=== PATIENT | female | born 1990 | race Caucasian/White ===

== ENCOUNTER 2018-03-24 07:30 | Emergency (ER) | payer BC ==
--- NOTE | 2018-03-24 09:12 | ER ---
Nurse's Notes [facility] Name: Adamaris Whitlock Age: 27 yrs Sex: Female : 1990 Arrival Date: 03/24/2018 Time: 07:36 Bed 18 Private MD: Diagnosis: Dehydration;Palpitations Presentation: 03/24 07:41 Presenting complaint: Patient states: "I went out drinking last night and it's done ss this before but my heart rate is high, like I can feel it and it is scaring me. I don't know if it's an allergy or what.". Transition of care: patient was not received from another setting of care. Onset of symptoms was March 24, 2018. Risk Assessment: Do you want to hurt yourself or someone else? Patient reports no desire to harm self or others. Initial Sepsis Screen: Does the patient meet any 2 criteria? HR > 90 bpm. Does the patient have a suspected source of infection? No. Patient's initial sepsis screen is negative. Care prior to arrival: None. 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 - Social history:: Smoking status: Patient uses tobacco products, smokes one pack cigarettes per day. - Ebola Screening: : Patient denies exposure to infectious person Patient denies travel to an Ebola-affected area in the 21 days before illness onset. Screenin:00 Abuse screen: Denies threats or abuse. Nutritional screening: No deficits noted. em Tuberculosis screening: No symptoms or risk factors identified. Fall Risk None identified. Assessment: 08:00 General: Appears in no apparent distress. comfortable, Behavior is calm, cooperative. em Pain: Denies pain. Neuro: Level of Consciousness is awake, alert, obeys commands, Oriented to person, place, time, situation. Cardiovascular: Capillary refill < 3 seconds Patient's skin is warm and dry. Rhythm is sinus tachycardia. Respiratory: Airway is patent Respiratory effort is even, unlabored, Respiratory pattern is regular, symmetrical. GI: GI: Abdomen is flat, Reports nausea, vomiting. : Urine is clear. Derm: Skin is intact, is healthy with good turgor, Skin is pink, warm \\T\\ dry. Vital Signs: 07:43 BP 153 / 87; Pulse 108; Resp 16; Temp 98.2; Pulse Ox 100% on R/A; Weight 117.93 kg; ss Height 5 ft. 11 in. (180.34 cm); Pain 0/10; 08:29 BP 153 / 85; Pulse 99; Resp 17; Pulse Ox 97% on R/A; mh5 07:43 Body Mass Index 36.26 (117.93 kg, 180.34 cm) ED Course: 07:36 Patient arrived in ED. mr 07:42 Triage completed. ss 07:43 Arm band placed on right wrist. ss 07:48 Magda Marin FNP-C is PHCP. snw 07:48 Italo Lr MD is Attending Physician. snw 07:55 Zafar Zamarripa LVN is Primary Nurse. em 08:28 Patient has correct armband on for positive identification. Placed in gown. Bed in low mh5 position. Call light in reach. Side rails up X 1. Adult w/ patient. Warm blanket given. cardiac monitor on. Pulse ox on. NIBP on. 08:28 Urine collected: clean catch specimen, clear. mh5 08:58 Urine --Ancillary (enter results) Sent. mh5 08:58 Urine Dipstick--Ancillary (enter results) Sent. mh5 09:12 EKG done, by ED staff, reviewed by Italo Lr MD. 5 10:12 No provider procedures requiring assistance completed. Patient did not have IV access em during this emergency room visit. Administered Medications: No medications were administered Outcome: 09:11 Discharge ordered by . snw 10:23 Discharged to home ambulatory. em 10:23 Condition: good 10:23 Discharge instructions given to patient, Instructed on discharge instructions, follow up and referral plans. Demonstrated understanding of instructions, follow-up care. 10:23 Patient left the ED. em Signatures: Magda Marin, JEWELRY RACKER-C JEWELRY RACKER-Csnw Amparo Dawn Edgar, MANUAL WRITER MANUAL WRITER em Vanessa Wright, RN RN Brenna Sanchez [facility]
--- NOTE | 2018-03-24 09:12 | EDPHYS ---
Physician Documentation [facility] Name: Adamaris Whitlock Age: 27 yrs Sex: Female : 1990 Arrival Date: 03/24/2018 Time: 07:36 Bed 18 Private MD: ED Physician Italo Lr HPI: 03/24 09:13 This 27 yrs old Female presents to ER via Ambulatory with complaints of High snw Pulse Rate. 09:13 Onset: The symptoms/episode began/occurred suddenly, post drinking last pm, awoke at snw 0400 with palpitations. Associated signs and symptoms: The patient has no apparent associated signs or symptoms. Modifying factors: The patient symptoms are alleviated by rest, the patient symptoms are aggravated by ETOH. The patient has experienced a previous episode. It is unknown whether or not the patient has recently seen a physician. 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 - Social history:: Smoking status: Patient uses tobacco products, smokes one pack cigarettes per day. - Ebola Screening: : Patient denies exposure to infectious person Patient denies travel to an Ebola-affected area in the 21 days before illness onset. ROS: 09:12 Constitutional: Negative for fever, chills, and weight loss, Eyes: Negative for injury, snw pain, redness, and discharge, ENT: Negative for injury, pain, and discharge, Neck: Negative for injury, pain, and swelling, Respiratory: Negative for shortness of breath, cough, wheezing, and pleuritic chest pain, Abdomen/GI: Negative for abdominal pain, nausea, vomiting, diarrhea, and constipation, Back: Negative for injury and pain, : Negative for injury, bleeding, discharge, and swelling, MS/Extremity: Negative for injury and deformity, Skin: Negative for injury, rash, and discoloration, Neuro: Negative for headache, weakness, numbness, tingling, and seizure, Psych: Negative for depression, anxiety, suicide ideation, homicidal ideation, and hallucinations. 09:12 Cardiovascular: Positive for palpitations. Exam: :12 Constitutional: This is a well developed, well nourished patient who is awake, alert, snw and in no acute distress. Head/Face: Normocephalic, atraumatic. Eyes: Pupils equal round and reactive to light, extra-ocular motions intact. Lids and lashes normal. Conjunctiva and sclera are non-icteric and not injected. Cornea within normal limits. Periorbital areas with no swelling, redness, or edema. ENT: Nares patent. No nasal discharge, no septal abnormalities noted. Tympanic membranes are normal and external auditory canals are clear. Oropharynx with no redness, swelling, or masses, exudates, or evidence of obstruction, uvula midline. Mucous membranes moist. Neck: Trachea midline, no thyromegaly or masses palpated, and no cervical lymphadenopathy. Supple, full range of motion without nuchal rigidity, or vertebral point tenderness. No Meningismus. Chest/axilla: Normal chest wall appearance and motion. Nontender with no deformity. No lesions are appreciated. Cardiovascular: Regular rate and rhythm with a normal S1 and S2. No gallops, murmurs, or rubs. Normal PMI, no JVD. No pulse deficits. Respiratory: Lungs have equal breath sounds bilaterally, clear to auscultation and percussion. No rales, rhonchi or wheezes noted. No increased work of breathing, no retractions or nasal flaring. Abdomen/GI: Soft, non-tender, with normal bowel sounds. No distension or tympany. No guarding or rebound. No evidence of tenderness throughout. Back: No spinal tenderness. No costovertebral tenderness. Full range of motion. Skin: Warm, dry with normal turgor. Normal color with no rashes, no lesions, and no evidence of cellulitis. MS/ Extremity: Pulses equal, no cyanosis. Neurovascular intact. Full, normal range of motion. Neuro: Awake and alert, GCS 15, oriented to person, place, time, and situation. Cranial nerves II-XII grossly intact. Motor strength 5/5 in all extremities. Sensory grossly intact. Cerebellar exam normal. Normal gait. Vital Signs: 07:43 BP 153 / 87; Pulse 108; Resp 16; Temp 98.2; Pulse Ox 100% on R/A; Weight 117.93 kg; ss Height 5 ft. 11 in. (180.34 cm); Pain 0/10; 08:29 BP 153 / 85; Pulse 99; Resp 17; Pulse Ox 97% on R/A; mh5 07:43 Body Mass Index 36.26 (117.93 kg, 180.34 cm) ss MDM: 07:48 Patient medically screened. snw 09:13 Data reviewed: vital signs, nurses notes. Data interpreted: Pulse oximetry: on room air snw is 97 %. Interpretation: normal. Counseling: I had a detailed discussion with the patient and/or guardian regarding: the historical points, exam findings, and any diagnostic results supporting the discharge/admit diagnosis, the presence of at least one elevated blood pressure reading (>120/80) during this emergency department visit, lab results, the need for outpatient follow up, to return to the emergency department if symptoms worsen or persist or if there are any questions or concerns that arise at home. Special discussion: Based on the history and exam findings, there is no indication for further emergent testing or inpatient evaluation. I discussed with the patient/guardian the need to see the medical parasitologist for further evaluation of the symptoms. I discussed with the patient/guardian the need to see the primary care provider for further evaluation of the symptoms. 03/24 08:37 Order name: Urine Dipstick--Ancillary (enter results) eb 03/24 08:37 Order name: Urine --Ancillary (enter results) eb 03/24 07:48 Order name: EKG; Complete Time: 07:48 ss 03/24 07:48 Order name: EKG - Nurse/Tech; Complete Time: 08:00 ss Administered Medications: No medications were administered Disposition: 03/24/18 09:11 Discharged to Home. Impression: Dehydration, Palpitations. - Condition is Stable. - Discharge Instructions: Dehydration, Adult, Hypertension, Palpitations, Rehydration, Adult. - Work release form, Medication Reconciliation Form, Thank You Letter, Antibiotic Education, Prescription Opioid Use form. - Follow up: Private Physician; When: 2 - 3 days; Reason: Recheck today's complaints, Continuance of care, Re-evaluation by your physician. Follow up: Emergency Department; When: As needed; Reason: Worsening of condition. Addendum: 03/28/2018 10:56 Co-signature as Attending Physician, Italo Lr MD I agree with the assessment and c melissa plan of care. Signatures: Dispatcher [employer] Italo Izaguirre MD MD cha Therrien, Shelly, ORNAMENTER HAND-C ORNAMENTER HAND-Csnw Zafar Zamarripa, DIRECTOR OF FOOD AND NUTRITION DIRECTOR OF FOOD AND NUTRITION em Vanessa Wright RN RN ss Corrections: (The following items were deleted from the chart) 03/24 10:23 09:11 03/24/2018 09:11 Discharged to Home. Impression: Dehydration; Palpitations. em Condition is Stable. Forms are Medication Reconciliation Form, Thank You Letter, Antibiotic Education, Prescription Opioid Use. Follow up: Private Physician; When: 2 - 3 days; Reason: Recheck today's complaints, Continuance of care, Re-evaluation by your physician. Follow up: Emergency Department; When: As needed; Reason: Worsening of condition. snw
[2018-03-24 12:28] LABS: Urine Blood 2+ (NEG); Urine Glucose NEGATIVE (NEG); Urine Protein TRACE (NEG); Urine Specific Gravity 1.025 (1.005-1.030); Urine pH 5.5 (5.0-7.0)
--- NOTE | 2018-03-24 14:50 | EKG ---
Test Date: 2018-03-24 Test Time: 07:52:03 Credit [employer] Manager: MAYRA MEASUREMENT RESULTS: Intervals: Rate: 103 PA: 132 QRSD: 84 QT: 336 QTc: 440 [place]: P: 22 PA: 132 QRS: 8 T: 38 INTERPRETIVE STATEMENTS: Sinus tachycardia Otherwise normal ECG No previous ECG available for comparison Electronically Signed On 03-24-18 14:49:42 [employer]ATION MECHANIC by Gerardo Edmonds
== END 2018-03-24 10:23 | disposition home or self-care (01) ==
LOC: ER 07:30
DX: E86.0 Dehydration (principal); R00.2 Palpitations; I10 Essential (primary) hypertension; F90.9 Attention-deficit hyperactivity disorder, unspecified type; F41.9 Anxiety disorder, unspecified; F17.210 Nicotine dependence, cigarettes, uncomplicated; Z79.899 Other long term (current) drug therapy
CPT/HCPCS: 81003; 81025; 93005; 99284

== ENCOUNTER 2023-06-23 21:52 | Emergency (ER) | payer BC, OTHER ==
--- OUTSIDE RECORDS SUMMARY | 2023-06-23 21:57 | XMS REPORT | Continuity of Care Document ---
Author Name Unknown Address [address] [facility] [place] [address] [facility] thconnect Address [address] [facility] [address] [place] [address] Care Team Providers Care Door Builder Name Role Phone PCP, NOT FOUND Primary Care Physician Unavailab KIRA Knight Attending Clinician Unavailable TJ CONNORS Attending Clinician Unav TJ Aguilar Attending Clinician UnaKira Rankin MD Attending Clinician [phone] Chapin Villanueva MD Attending Clinician [phone] CHAPIN VILLANUEVA Attending Clinician Unavaila CHAPIN Mckeon Attending Clinician Unavaila ulices Doctor Unassigned, [place] Attending Clinician [facility] Attending Clinician Unavaila ROEL Ivey Attending Clinician Unavailable Roel Nix MD Attending Clinician [phone] MONICA REYES Attending Clinician Unavailab Monica Ndiaye DO Attending Clinician [phone] ROMINA LYONS Attending Clinician Unavailable [facility] Attending Clinician Un available Unknown, Attending Attending Clinician Unavailab Scotty Ramirez Attending Clinician [phone] SCOTTY GARRIDO Attending Clinician Unavailable BJ SMITH Attending Clinician Unavailable Neha Strickland Attending Clinician [phone] NEHA PERALTA Attending Clinician Unavailable Andrew Lopez Attending Clinician Unavailable UNKNOWN, ATTENDING Attending Clinician Unavailab Evelin DE LA PAZ MD, Glenn C Attending Clinician [phone] Vaccine, Ang [facility] Attending Clinician Unavailab Santos CLEMENTE, Malcom Attending Clinician GLENN MELARA III Attending Clinician Unavailbaldev Scherer RN, Kathy Hdez Attending Clinician UnavailLETHA Becerra Attending Clinician Unavailable ROEL NIX Admitting Clinician Unavailable Payers Payer Name Policy Type Policy Number Effective Date Expirati on Date Source [place] [facility] STATE [id number] 2019 00:00:00 [place] [id number] 2019 00:00:00 Problems Condition Name Condition Details Condition Category Status Onset Date Resolution Date Last Treatment Date Treating Clinician Comments Source JOSHUA (obstructi ve sleep apnea) JOSHUA (obstructi ve sleep apnea) Disease Active 06-22 00:00: 00 [facility] Palpitatio ns Palpitatio ns Disease Active 06-22 00:00: 00 [facility] Chest pain, unspecifie d type Chest pain, unspecifie d type Disease Active 06-22 00:00: 00 [facility] Dizziness and giddiness Dizziness and giddiness Disease Active 06-22 00:00: 00 [facility] Obesity (BMI 30-39.9) Obesity (BMI 30-39.9) Disease Active 06-22 00:00: 00 [facility] Tobacco abuse Tobacco abuse Disease Active - 00:00: 00 [facility] Mixed anxiety and depressive disorder Mixed anxiety and depressive disorder Disease Active 9- 00:00: 00 [facility] Anxiety Anxiety Disease Active 10-07 00:00: 00 [facility] Hypertensi ve disorder Hypertensi ve disorder Disease Active - 00:00: 00 [facility] Allergies, Adverse Reactions, Alerts Allergy Name Allergy Type Status Severity Reaction(s) Onset Date Inactive Date Treating Clinician Comments Source BUSPIRON E DRUG INGREDI Active Other-Cmnt 2022-03- 00:00: 00 [facility] Buspiron e Propensi ty to adverse reaction s Active Other - See comments 2022-03 00:00: 00 [facility] Penicill ins Drug Allergy Active Shortness of Breath 2020-0 5-13 00:00: 00 Other reaction( s): Breathing issues [facility] LISINOPR IL DRUG INGREDI Active High SOB 2020-0 5-13 00:00: 00 [facility] PENICILL INS Drug Class Active High SOB 2020-0 5-13 00:00: 00 [facility] SULFA (SULFONA MIDE ANTIBIOT ICS) Drug Class Active High SOB 2020-0 5-13 00:00: 00 [facility] Lisinopr il Drug Allergy Active Shortness of Breath 2020-0 5-13 00:00: 00 Other reaction( s): Breathing issues [facility] Penicill ins Drug Allergy Active Shortness of Breath 2020-0 5-13 00:00: 00 [facility] Sulfa (Sulfona mide Antibiot ics) Drug Allergy Active Shortness of Breath 1-0 5-13 00:00: 00 [facility] Penicill ins Drug Allergy Active Shortness of Breath 1-0 5-13 00:00: 00 [facility] Sulfa (Sulfona mide Antibiot ics) Drug Allergy Active Shortness of Breath 1-0 5-13 00:00: 00 Other reaction( s): Breathing issues [facility] NO KNOWN ALLERGIE S Drug Class Active [facility] Social History Social Habit Start Date Stop Date Quantity Comments Source Gender identity [facility] Sexual orientation [facility] History of tobacco use Cigarette Smoker [facility] History SDOH Alcohol Frequency [facility] History SDOH Alcohol Std Drinks [facility] History SDOH Alcohol Binge [facility] Alcohol intake 2023-03-16 00:00:00 2023-03-16 00:00:00 Current drinker of alcohol (finding) [facility] Cigarettes smoked current (pack per day) - Reported 2022-10-18 00:00:00 2022-10-18 00:00:00 [facility] Cigarette pack-years 2022-10-18 00:00:00 2022-10-18 00:00:00 [facility] Tobacco use and exposure 2022-10-18 00:00:00 2022-10-18 00:00:00 Smokeless tobacco non-user [facility] History of Social function 2022-09-10 00:00:00 2022-09-10 00:00:00 [facility] Exposure to SARS-CoV-2 (event) 2022-03-17 00:00:00 2022-03-27 11:59:00 Not sure [facility] Alcohol Comment 2020-08-07 00:00:00 2020-08-07 00:00:00 social [facility] Sex Assigned At 1990 00:00:00 1990 00:00:00 [facility] Smoking Status Start Date Stop Date Source Unknown if ever smoked Unive [facility] Smokes tobacco daily 2022-10-18 00:00:00 [facility] Medications Ordered Medication Name Filled Medication Name Start Date Stop Date Current Medication? Ordering Clinician Indication Dosage Frequency Signature (SIG) Comments Components Source COSENTYX PEN, 2 PENS, 150 mg/mL SC injection 0 05-28 00:00: 00 Yes [facility] COSENTYX PEN, 2 PENS, 150 mg/mL SC injection 0 05-28 00:00: 00 Yes [facility] COSENTYX PEN, 2 PENS, 150 mg/mL SC injection 0 05-28 00:00: 00 Yes [facility] COSENTYX PEN, 2 PENS, 150 mg/mL SC injection 2023-0 05-28 00:00: 00 Yes [facility] COSENTYX PEN, 2 PENS, 150 mg/mL SC injection 0 05-28 00:00: 00 Yes [facility] SERTraline 25 mg tablet 2023-0 1-30 00:00: 00 Yes PLEASE SEE ATTACHED FOR DETAILED DIRECTIONS [facility] SERTraline 25 mg tablet 2023-0 1-30 00:00: 00 Yes PLEASE SEE ATTACHED FOR DETAILED DIRECTIONS [facility] SERTraline 25 mg tablet 04-26 00:00: 00 Yes PLEASE SEE ATTACHED FOR DETAILED DIRECTIONS [facility] SERTraline 25 mg tablet 04-26 00:00: 00 Yes PLEASE SEE ATTACHED FOR DETAILED DIRECTIONS [facility] SERTraline 25 mg tablet 04-26 00:00: 00 Yes PLEASE SEE ATTACHED FOR DETAILED DIRECTIONS [facility] sulfur hexafluorid e microsphr (LUMASON) injection 5 mL 04-15 17:15: 00 04-15 17:13 :00 No [id number] 5mL 5 mL, Intravenou s, ONCE, 1 dose, On Tue04/15/23 at 1115, Routine
produce team member approving Restricted medication : KIRA HOLLIS [facility] propranoloL 20 mg tablet 2022-03 00:00: 00 Yes [id number] 20mg Take 1 tablet by mouth in the morning and 1 tablet in the evening. [facility] propranoloL 20 mg tablet 2022-03 00:00: 00 Yes [id number] 20mg Take 1 tablet by mouth in the morning and 1 tablet in the evening. [facility] propranoloL 20 mg tablet 2022-03 00:00: 00 Yes [id number] 20mg Take 1 tablet by mouth in the morning and 1 tablet in the evening. [facility] propranoloL 20 mg tablet 2022-03 00:00: 00 Yes [id number] 20mg Take 1 tablet by mouth in the morning and 1 tablet in the evening. [facility] propranoloL 20 mg tablet 2022-03 00:00: 00 Yes [id number] 20mg Take 1 tablet by mouth in the morning and 1 tablet in the evening. [facility] propranoloL 20 mg tablet 2022-03 00:00: 00 Yes [id number] 20mg Take 1 tablet by mouth in the morning and 1 tablet in the evening. [facility] propranoloL 20 mg tablet 2022-03 00:00: 00 Yes [id number] 20mg Take 1 tablet by mouth in the morning and 1 tablet in the evening. [facility] propranoloL 20 mg tablet 2022-03 00:00: 00 Yes [id number] 20mg Take 1 tablet by mouth in the morning and 1 tablet in the evening. [facility] propranoloL 20 mg tablet 2022-03 00:00: 00 Yes [id number] 20mg Take 1 tablet by mouth in the morning and 1 tablet in the evening. [facility] propranoloL 20 mg tablet 2022-03 00:00: 00 Yes [id number] 20mg Take 1 tablet by mouth in the morning and 1 tablet in the evening. [facility] propranoloL 20 mg tablet 2022-03 00:00: 00 Yes [id number] 20mg Take 1 tablet by mouth in the morning and 1 tablet in the evening. [facility] propranoloL 20 mg tablet 2022-03 00:00: 00 Yes [id number] 20mg Take 1 tablet by mouth in the morning and 1 tablet in the evening. [facility] propranoloL 20 mg tablet 2022-03 00:00: 00 Yes [id number] 20mg Take 1 tablet by mouth in the morning and 1 tablet in the evening. [facility] propranoloL 20 mg tablet 2022-03 00:00: 00 Yes [id number] 20mg Take 1 tablet by mouth in the morning and 1 tablet in the evening. [facility] propranoloL 20 mg tablet 2022-03 00:00: 00 Yes [id number] 20mg Take 1 tablet by mouth in the morning and 1 tablet in the evening. [facility] propranoloL 20 mg tablet 2022-03 00:00: 00 Yes [id number] 20mg Take 1 tablet by mouth in the morning and 1 tablet in the evening. [facility] propranoloL 20 mg tablet 2022-03 00:00: 00 Yes [id number] 20mg Take 1 tablet by mouth in the morning and 1 tablet in the evening. [facility] LORazepam (ATIVAN) tablet 0.5 mg 2022-03 21:15: 00 03-02 21:14 :00 No .5mg 0.5 mg, Oral, ONCE, 1 dose, On Tue03/02/23 at 1515, Routine [facility] promethazin e-dextromet horphan 6.25-15 mg/5 mL syrup 2022-03 2- 00:00: 00 03-09 05:59 :00 No [id number] 5mL Take 5 mL by mouth 4 (four) times daily for 10 days. [facility] promethazin e-dextromet horphan 6.25-15 mg/5 mL syrup 2022-03 2- 00:00: 00 03-09 05:59 :00 No [id number] 5mL Take 5 mL by mouth 4 (four) times daily for 10 days. [facility] promethazin e-dextromet horphan 6.25-15 mg/5 mL syrup 2022-03 2- 00:00: 00 03-09 05:59 :00 No [id number] 5mL Take 5 mL by mouth 4 (four) times daily for 10 days. [facility] promethazin e-dextromet horphan 6.25-15 mg/5 mL syrup 2022-03 2- 00:00: 00 03-09 05:59 :00 No [id number] 5mL Take 5 mL by mouth 4 (four) times daily for 10 days. [facility] predniSONE 20 mg tablet 2022-03 2- 00:00: 00 03-04 05:59 :00 No [id number] 40mg Take 2 tablets by mouth in the morning for 5 days. [facility] predniSONE 20 mg tablet 2022-03 2- 00:00: 00 03-04 05:59 :00 No [id number] 40mg Take 2 tablets by mouth in the morning for 5 days. [facility] predniSONE 20 mg tablet 2022-03 2- 00:00: 00 03-04 05:59 :00 No [id number] 40mg Take 2 tablets by mouth in the morning for 5 days. [facility] predniSONE 20 mg tablet 2022-03 2- 00:00: 00 03-04 05:59 :00 No [id number] 40mg Take 2 tablets by mouth in the morning for 5 days. [facility] nirmatrelvi r-ritonavir (PAXLOVID, EUA,) 300 mg (150 mg x 2)-100 mg tablet 10-18 00:00: 00 10-24 04:59 :00 No [id number] 3{tbl} Take 3 tablets by mouth in the morning and 3 tablets in the evening. Do all this for 5 days. [facility] propranoloL 10 mg tablet 0 08-02 07:06: 25 08-02 00:00 :00 No propranolo l 10 mg tablet TAKE ONE TABLET BY MOUTH THREE TIMES A DAY NEEDED [facility] irbesartan 150 mg tablet 0 08-02 00:00: 00 Yes [id number] 150mg Take 1 tablet by mouth in the morning. [facility] irbesartan 150 mg tablet 2022-0 08-02 00:00: 00 Yes [id number] 150mg Take 1 tablet by mouth in the morning. [facility] irbesartan 150 mg tablet 2022-0 08-02 00:00: 00 Yes [id number] 150mg Take 1 tablet by mouth in the morning. [facility] irbesartan 150 mg tablet 2022-0 08-02 00:00: 00 Yes [id number] 150mg Take 1 tablet by mouth in the morning. [facility] irbesartan 150 mg tablet 2022-0 08-02 00:00: 00 Yes [id number] 150mg Take 1 tablet by mouth in the morning. [facility] irbesartan 150 mg tablet 2022-0 08-02 00:00: 00 Yes [id number] 150mg Take 1 tablet by mouth in the morning. [facility] irbesartan 150 mg tablet 2022-0 08-02 00:00: 00 Yes [id number] 150mg Take 1 tablet by mouth in the morning. [facility] irbesartan 150 mg tablet 2022-0 08-02 00:00: 00 Yes [id number] 150mg Take 1 tablet by mouth in the morning. [facility] irbesartan 150 mg tablet 2022-0 5-08 00:00: 00 Yes [id number] 150mg Take 1 tablet by mouth in the morning. [facility] irbesartan 150 mg tablet 2023-0 5-08 00:00: 00 Yes [id number] 150mg Take 1 tablet by mouth in the morning. [facility] irbesartan 150 mg tablet 2023-0 5-08 00:00: 00 Yes [id number] 150mg Take 1 tablet by mouth in the morning. [facility] irbesartan 150 mg tablet 2023-0 5-08 00:00: 00 Yes [id number] 150mg Take 1 tablet by mouth in the morning. [facility] irbesartan 150 mg tablet 2023-0 5-08 00:00: 00 Yes [id number] 150mg Take 1 tablet by mouth in the morning. [facility] irbesartan 150 mg tablet 2023-0 5-08 00:00: 00 Yes [id number] 150mg Take 1 tablet by mouth in the morning. [facility] irbesartan 150 mg tablet 2023-0 5-08 00:00: 00 Yes [id number] 150mg Take 1 tablet by mouth in the morning. [facility] irbesartan 150 mg tablet 2023-0 5-08 00:00: 00 Yes [id number] 150mg Take 1 tablet by mouth in the morning. [facility] irbesartan 150 mg tablet 2023-0 5-08 00:00: 00 Yes [id number] 150mg Take 1 tablet by mouth in the morning. [facility] irbesartan 150 mg tablet 2023-0 5-08 00:00: 00 Yes [id number] 150mg Take 1 tablet by mouth in the morning. [facility] irbesartan 150 mg tablet 2023-0 5-08 00:00: 00 Yes [id number] 150mg Take 1 tablet by mouth in the morning. [facility] irbesartan 150 mg tablet 2023-0 5-08 00:00: 00 Yes [id number] 150mg Take 1 tablet by mouth in the morning. [facility] irbesartan 150 mg tablet 2023-0 5-08 00:00: 00 Yes [id number] 150mg Take 1 tablet by mouth in the morning. [facility] irbesartan 150 mg tablet 2023-0 5-08 00:00: 00 Yes [id number] 150mg Take 1 tablet by mouth in the morning. [facility] irbesartan 150 mg tablet 2023-0 5-08 00:00: 00 Yes [id number] 150mg Take 1 tablet by mouth in the morning. [facility] irbesartan 150 mg tablet 2023-0 5-08 00:00: 00 Yes [id number] 150mg Take 1 tablet by mouth in the morning. [facility] irbesartan 150 mg tablet 2023-0 5-08 00:00: 00 Yes [id number] 150mg Take 1 tablet by mouth in the morning. [facility] irbesartan 150 mg tablet 2023-0 5-08 00:00: 00 Yes [id number] 150mg Take 1 tablet by mouth in the morning. [facility] irbesartan 150 mg tablet 2023-0 -08 00:00: 00 Yes [id number] 150mg Take 1 tablet by mouth in the morning. [facility] irbesartan 150 mg tablet 3-0 08 00:00: 00 Yes [id number] 150mg Take 1 tablet by mouth in the morning. [facility] irbesartan 150 mg tablet 3-0 -08 00:00: 00 Yes [id number] 150mg Take 1 tablet by mouth in the morning. [facility] irbesartan 150 mg tablet 3-0 08 00:00: 00 Yes [id number] 150mg Take 1 tablet by mouth in the morning. [facility] propranoloL 10 mg tablet 3-0 08 00:00: 00 11-01 04:59 :00 No [id number] 10mg Take 1 tablet by mouth in the morning for 90 days. [facility] propranoloL 10 mg tablet 2023-0 -08 00:00: 00 11-01 04:59 :00 No [id number] 10mg Take 1 tablet by mouth in the morning for 90 days. [facility] propranoloL 10 mg tablet 2023-0 5-08 00:00: 00 11-01 04:59 :00 No [id number] 10mg Take 1 tablet by mouth in the morning for 90 days. [facility] propranoloL 10 mg tablet 3-0 5-08 00:00: 00 07 04:59 :00 No [id number] 10mg Take 1 tablet by mouth in the morning for 90 days. [facility] adalimumab (HUMIRA,CF, PEN) 80 mg/0.8 mL PnKt 2023-0 3-20 00:00: 00 Yes [facility] it[facility] adalimumab (HUMIRA,CF, PEN) 80 mg/0.8 mL PnKt 2023-0 3-20 00:00: 00 Yes [facility] adalimumab (HUMIRA,CF, PEN) 80 mg/0.8 mL PnKt 2023-0 3-20 00:00: 00 Yes [facility] adalimumab (HUMIRA,CF, PEN) 80 mg/0.8 mL PnKt 2023-0 3-20 00:00: 00 Yes [facility] adalimumab (HUMIRA,CF, PEN) 80 mg/0.8 mL PnKt 2023-0 3-20 00:00: 00 Yes [facility] benzonatate 100 mg capsule 2021-03 2- 00:00: 00 Yes [id number] 100mg Take 1 capsule by mouth every 8 (eight) hours as needed for Cough. [facility] benzonatate 100 mg capsule 2021- 2- 00:00: 00 Yes [id number] 100mg Take 1 capsule by mouth every 8 (eight) hours as needed for Cough. [facility] benzonatate 100 mg capsule 2021- 2- 00:00: 00 Yes [id number] 100mg Take 1 capsule by mouth every 8 (eight) hours as needed for Cough. [facility] benzonatate 100 mg capsule 2021- 2- 00:00: 00 Yes [id number] 100mg Take 1 capsule by mouth every 8 (eight) hours as needed for Cough. [facility] benzonatate 100 mg capsule 2021- 2- 00:00: 00 Yes [id number] 100mg Take 1 capsule by mouth every 8 (eight) hours as needed for Cough. [facility] benzonatate 100 mg capsule 2021-03 00:00: 00 Yes [id number] 100mg Take 1 capsule by mouth every 8 (eight) hours as needed for Cough. [facility] benzonatate 100 mg capsule 2021-03 00:00: 00 Yes [id number] 100mg Take 1 capsule by mouth every 8 (eight) hours as needed for Cough. [facility] mg capsule 2021-03 00:00: 00 Yes [id number] 100mg Take 1 capsule by mouth every 8 (eight) hours as needed for Cough. [facility] mg capsule 2021-03 00:00: 00 Yes [id number] 100mg Take 1 capsule by mouth every 8 (eight) hours as needed for Cough. [facility] benzonatate 100 mg capsule 2021-03 00:00: 00 Yes [id number] 100mg Take 1 capsule by mouth every 8 (eight) hours as needed for Cough. [facility] mg capsule 2021-03 00:00: 00 Yes [id number] 100mg Take 1 capsule by mouth every 8 (eight) hours as needed for Cough. [facility] benzonatate 100 mg capsule 2021-03 00:00: 00 Yes [id number] 100mg Take 1 capsule by mouth every 8 (eight) hours as needed for Cough. [facility] benzonatate 100 mg capsule 2021-05-18 00:00: 00 Yes [id number] 100mg Take 1 capsule by mouth every 8 (eight) hours as needed for Cough. [facility] benzonatate 100 mg capsule 2021-05-18 00:00: 00 Yes [id number] 100mg Take 1 capsule by mouth every 8 (eight) hours as needed for Cough. [facility] mg capsule 2021-05-18 00:00: 00 Yes [id number] 100mg Take 1 capsule by mouth every 8 (eight) hours as needed for Cough. [facility] mg capsule 2021-05-18 00:00: 00 Yes [id number] 100mg Take 1 capsule by mouth every 8 (eight) hours as needed for Cough. [facility] mg capsule 2021-05-18 00:00: 00 Yes [id number] 100mg Take 1 capsule by mouth every 8 (eight) hours as needed for Cough. [facility] benzonatate 100 mg capsule 2021-05-18 00:00: 00 Yes [id number] 100mg Take 1 capsule by mouth every 8 (eight) hours as needed for Cough. [facility] ben[facility] 100 mg capsule 2021-05-18 00:00: 00 Yes [id number] 100mg Take 1 capsule by mouth every 8 (eight) hours as needed for Cough. [facility] 100 mg capsule 2021-05-18 00:00: 00 Yes [id number] 100mg Take 1 capsule by mouth every 8 (eight) hours as needed for Cough. [facility]ate 100 mg capsule 2021-05-18 00:00: 00 Yes [id number] 100mg Take 1 capsule by mouth every 8 (eight) hours as needed for Cough. [facility] benzonatate 100 mg capsule 2021-05-18 00:00: 00 Yes [id number] 100mg Take 1 capsule by mouth every 8 (eight) hours as needed for Cough. [facility] benzonatate 100 mg capsule 2021-03 00:00: 00 Yes [id number] 100mg Take 1 capsule by mouth every 8 (eight) hours as needed for Cough. [facility] benzon[facility]ate 100 mg capsule 2021-05-18 00:00: 00 Yes [id number] 100mg Take 1 capsule by mouth every 8 (eight) hours as needed for Cough. [facility] benzonatate 100 mg capsule 2021-1 05-18 00:00: 00 Yes [id number] 100mg Take 1 capsule by mouth every 8 (eight) hours as needed for Cough. [facility] 100 mg capsule 2021-1 05-18 00:00: 00 Yes [id number] 100mg Take 1 capsule by mouth every 8 (eight) hours as needed for Cough. [facility] 2021-1 05-18 00:00: 00 Yes [id number] 100mg Take 1 capsule by mouth every 8 (eight) hours as needed for Cough. [facility] benzonatate 100 mg capsule 2021-03 00:00: 00 Yes [id number] 100mg Take 1 capsule by mouth every 8 (eight) hours as needed for Cough. [facility] benzonatate 100 mg capsule 2021-03 00:00: 00 Yes [id number] 100mg Take 1 capsule by mouth every 8 (eight) hours as needed for Cough. [facility] benzonatate 100 mg capsule 2021-03 00:00: 00 Yes [id number] 100mg Take 1 capsule by mouth every 8 (eight) hours as needed for Cough. [facility] benzonatate 100 mg capsule 2021-03 00:00: 00 Yes [id number] 100mg Take 1 capsule by mouth every 8 (eight) hours as needed for Cough. [facility] benzonatate 100 mg capsule 2021-03 00:00: 00 Yes [id number] 100mg Take 1 capsule by mouth every 8 (eight) hours as needed for Cough. [facility] Methylpredn isolone 4 mg tablet 2021-03 00:00: 00 03-23 05:59 :00 No [id number] 4mg Take 1 tablet by mouth every 12 (twelve) hours for 5 days. [facility] azithromyci n 250 mg tablet 2021-0 08-13 00:00: 00 Yes TAKE 2 TABLETS BY MOUTH TODAY, THEN TAKE 1 TABLET DAILY FOR 4 DAYS [facility] azithromyci n 250 mg tablet 2021-0 08-13 00:00: 00 Yes TAKE 2 TABLETS BY MOUTH TODAY, THEN TAKE 1 TABLET DAILY FOR 4 DAYS [facility] azithromyci n 250 mg tablet 2021-0 - 00:00: 00 Yes TAKE 2 TABLETS BY MOUTH TODAY, THEN TAKE 1 TABLET DAILY FOR 4 DAYS [facility] azithromyci n 250 mg tablet 2021-0 - 00:00: 00 Yes TAKE 2 TABLETS BY MOUTH TODAY, THEN TAKE 1 TABLET DAILY FOR 4 DAYS [facility] azithromyci n 250 mg tablet 0 08-13 00:00: 00 Yes TAKE 2 TABLETS BY MOUTH TODAY, THEN TAKE 1 TABLET DAILY FOR 4 DAYS [facility] azithromyci n 250 mg tablet 2021-0 08-13 00:00: 00 Yes TAKE 2 TABLETS BY MOUTH TODAY, THEN TAKE 1 TABLET DAILY FOR 4 DAYS [facility] azithromyci n 250 mg tablet 2021-0 08-13 00:00: 00 Yes TAKE 2 TABLETS BY MOUTH TODAY, THEN TAKE 1 TABLET DAILY FOR 4 DAYS [facility] azithromyci n 250 mg tablet 2021-0 08-13 00:00: 00 09-10 00:00 :00 No TAKE 2 TABLETS BY MOUTH TODAY, THEN TAKE 1 TABLET DAILY FOR 4 DAYS [facility] clindamycin 1 % gel 2021-0 08-05 00:00: 00 Yes APPLY THIN LAYER TO AFFECTED AREA IN GROIN/UNDE RARMS/LU STS EVERY DAY [facility] doxycycline hyclate 100 mg capsule 2021-0 08-05 00:00: 00 Yes TAKE 1 CAPSULE BY MOUTH TWICE A DAY WITH FOOD AND WATER. DO NOT LIE DOWN ONE HOUR AFTER TAKING [facility] clindamycin 1 % gel 2021-0 08-05 00:00: 00 Yes APPLY THIN LAYER TO AFFECTED AREA IN GROIN/UNDE RARMS/LU STS EVERY DAY [facility] doxycycline hyclate 100 mg capsule 2021-0 08-05 00:00: 00 Yes TAKE 1 CAPSULE BY MOUTH TWICE A DAY WITH FOOD AND WATER. DO NOT LIE DOWN ONE HOUR AFTER TAKING [facility] clindamycin 1 % gel 2021-0 11 00:00: 00 Yes APPLY THIN LAYER TO AFFECTED AREA IN GROIN/UNDE RARMS/LU STS EVERY DAY [facility] doxycycline hyclate 100 mg capsule 2021-0 11 00:00: 00 Yes TAKE 1 CAPSULE BY MOUTH TWICE A DAY WITH FOOD AND WATER. DO NOT LIE DOWN ONE HOUR AFTER TAKING [facility] clindamycin 1 % gel 2-0 -11 00:00: 00 Yes APPLY THIN LAYER TO AFFECTED AREA IN GROIN/UNDE RARMS/LU STS EVERY DAY [facility] doxycycline hyclate 100 mg capsule 2-0 11 00:00: 00 Yes TAKE 1 CAPSULE BY MOUTH TWICE A DAY WITH FOOD AND WATER. DO NOT LIE DOWN ONE HOUR AFTER TAKING [facility] clindamycin 1 % gel 2022-0 11 00:00: 00 Yes APPLY THIN LAYER TO AFFECTED AREA IN GROIN/UNDE RARMS/LU STS EVERY DAY [facility] doxycycline hyclate 100 mg capsule 2-0 11 00:00: 00 Yes TAKE 1 CAPSULE BY MOUTH TWICE A DAY WITH FOOD AND WATER. DO NOT LIE DOWN ONE HOUR AFTER TAKING [facility] clindamycin 1 % gel 2-0 11 00:00: 00 Yes APPLY THIN LAYER TO AFFECTED AREA IN GROIN/UNDE RARMS/LU STS EVERY DAY [facility] doxycycline hyclate 100 mg capsule 2-0 08-05 00:00: 00 Yes TAKE 1 CAPSULE BY MOUTH TWICE A DAY WITH FOOD AND WATER. DO NOT LIE DOWN ONE HOUR AFTER TAKING [facility] clindamycin 1 % gel 2-0 11 00:00: 00 Yes APPLY THIN LAYER TO AFFECTED AREA IN GROIN/UNDE RARMS/LU STS EVERY DAY [facility] doxycycline hyclate 100 mg capsule 2-0 11 00:00: 00 Yes TAKE 1 CAPSULE BY MOUTH TWICE A DAY WITH FOOD AND WATER. DO NOT LIE DOWN ONE HOUR AFTER TAKING [facility] clindamycin 1 % gel 2-0 11 00:00: 00 Yes APPLY THIN LAYER TO AFFECTED AREA IN GROIN/UNDE RARMS/LU STS EVERY DAY [facility] doxycycline hyclate 100 mg capsule 2-0 11 00:00: 00 Yes TAKE 1 CAPSULE BY MOUTH TWICE A DAY WITH FOOD AND WATER. DO NOT LIE DOWN ONE HOUR AFTER TAKING [facility] clindamycin 1 % gel 2022-0 -11 00:00: 00 Yes APPLY THIN LAYER TO AFFECTED AREA IN GROIN/UNDE RARMS/LU STS EVERY DAY [facility] doxycycline hyclate 100 mg capsule 2-0 5-11 00:00: 00 Yes TAKE 1 CAPSULE BY MOUTH TWICE A DAY WITH FOOD AND WATER. DO NOT LIE DOWN ONE HOUR AFTER TAKING [facility] 1 % gel 2-0 11 00:00: 00 Yes APPLY THIN LAYER TO AFFECTED AREA IN GROIN/UNDE RARMS/LU STS EVERY DAY [facility] do[facility]ine hyclate 100 mg capsule 2-0 08-05 00:00: 00 Yes TAKE 1 CAPSULE BY MOUTH TWICE A DAY WITH FOOD AND WATER. DO NOT LIE DOWN ONE HOUR AFTER TAKING [facility] cl[facility] 1 % gel 2-0 11 00:00: 00 Yes APPLY THIN LAYER TO AFFECTED AREA IN GROIN/UNDE RARMS/LU STS EVERY DAY [facility] doxycycline hyclate 100 mg capsule 2021-0 08-05 00:00: 00 Yes TAKE 1 CAPSULE BY MOUTH TWICE A DAY WITH FOOD AND WATER. DO NOT LIE DOWN ONE HOUR AFTER TAKING [facility] clindamycin 1 % gel 2-0 08-05 00:00: 00 Yes APPLY THIN LAYER TO AFFECTED AREA IN GROIN/UNDE RARMS/LU STS EVERY DAY [facility] doxycycline hyclate 100 mg capsule 2021-0 08-05 00:00: 00 Yes TAKE 1 CAPSULE BY MOUTH TWICE A DAY WITH FOOD AND WATER. DO NOT LIE DOWN ONE HOUR AFTER TAKING [facility] clindamycin 1 % gel 2-0 11 00:00: 00 Yes APPLY THIN LAYER TO AFFECTED AREA IN GROIN/UNDE RARMS/LU STS EVERY DAY [facility] doxycycline hyclate 100 mg capsule 2-0 11 00:00: 00 Yes TAKE 1 CAPSULE BY MOUTH TWICE A DAY WITH FOOD AND WATER. DO NOT LIE DOWN ONE HOUR AFTER TAKING [facility] clindamycin 1 % gel 2-0 11 00:00: 00 Yes APPLY THIN LAYER TO AFFECTED AREA IN GROIN/UNDE RARMS/LU STS EVERY DAY [facility] doxycycline hyclate 100 mg capsule 2-0 11 00:00: 00 Yes TAKE 1 CAPSULE BY MOUTH TWICE A DAY WITH FOOD AND WATER. DO NOT LIE DOWN ONE HOUR AFTER TAKING [facility] clindamycin 1 % gel 2-0 11 00:00: 00 Yes APPLY THIN LAYER TO AFFECTED AREA IN GROIN/UNDE RARMS/LU STS EVERY DAY [facility] hy[facility]ate 100 mg capsule 2021-0 11 00:00: 00 Yes TAKE 1 CAPSULE BY MOUTH TWICE A DAY WITH FOOD AND WATER. DO NOT LIE DOWN ONE HOUR AFTER TAKING [facility] clindamycin 1 % gel 2-0 11 00:00: 00 Yes APPLY THIN LAYER TO AFFECTED AREA IN GROIN/UNDE RARMS/LU STS EVERY DAY [facility] do[facility] hy[facility]ate 100 mg capsule 2-0 08-05 00:00: 00 Yes TAKE 1 CAPSULE BY MOUTH TWICE A DAY WITH FOOD AND WATER. DO NOT LIE DOWN ONE HOUR AFTER TAKING [facility] clindamycin 1 % gel 2-0 11 00:00: 00 Yes APPLY THIN LAYER TO AFFECTED AREA IN GROIN/UNDE RARMS/LU STS EVERY DAY [facility] doxycycline hyclate 100 mg capsule 2021-0 08-05 00:00: 00 Yes TAKE 1 CAPSULE BY MOUTH TWICE A DAY WITH FOOD AND WATER. DO NOT LIE DOWN ONE HOUR AFTER TAKING [facility] clindamycin 1 % gel 2-0 11 00:00: 00 Yes APPLY THIN LAYER TO AFFECTED AREA IN GROIN/UNDE RARMS/LU STS EVERY DAY [facility] doxycycline hyclate 100 mg capsule 2-0 11 00:00: 00 Yes TAKE 1 CAPSULE BY MOUTH TWICE A DAY WITH FOOD AND WATER. DO NOT LIE DOWN ONE HOUR AFTER TAKING [facility] clindamycin 1 % gel 2-0 11 00:00: 00 Yes APPLY THIN LAYER TO AFFECTED AREA IN GROIN/UNDE RARMS/LU STS EVERY DAY [facility] do[facility]ine hy[facility]ate 100 mg capsule 2-0 11 00:00: 00 Yes TAKE 1 CAPSULE BY MOUTH TWICE A DAY WITH FOOD AND WATER. DO NOT LIE DOWN ONE HOUR AFTER TAKING [facility] clindamycin 1 % gel 2-0 11 00:00: 00 Yes APPLY THIN LAYER TO AFFECTED AREA IN GROIN/UNDE RARMS/LU STS EVERY DAY [facility] doxycycline hyclate 100 mg capsule 2-0 11 00:00: 00 Yes TAKE 1 CAPSULE BY MOUTH TWICE A DAY WITH FOOD AND WATER. DO NOT LIE DOWN ONE HOUR AFTER TAKING [facility] clindamycin 1 % gel 2-0 11 00:00: 00 Yes APPLY THIN LAYER TO AFFECTED AREA IN GROIN/UNDE RARMS/LU STS EVERY DAY [facility] doxycycline hyclate 100 mg capsule 2-0 11 00:00: 00 Yes TAKE 1 CAPSULE BY MOUTH TWICE A DAY WITH FOOD AND WATER. DO NOT LIE DOWN ONE HOUR AFTER TAKING [facility] clindamycin 1 % gel 2-0 11 00:00: 00 Yes APPLY THIN LAYER TO AFFECTED AREA IN GROIN/UNDE RARMS/LU STS EVERY DAY [facility] doxycycline hyclate 100 mg capsule 2-0 08-05 00:00: 00 Yes TAKE 1 CAPSULE BY MOUTH TWICE A DAY WITH FOOD AND WATER. DO NOT LIE DOWN ONE HOUR AFTER TAKING [facility] clindamycin 1 % gel 2-0 11 00:00: 00 Yes APPLY THIN LAYER TO AFFECTED AREA IN GROIN/UNDE RARMS/LU STS EVERY DAY [facility] doxycycline hyclate 100 mg capsule 2-0 11 00:00: 00 Yes TAKE 1 CAPSULE BY MOUTH TWICE A DAY WITH FOOD AND WATER. DO NOT LIE DOWN ONE HOUR AFTER TAKING [facility] clindamycin 1 % gel 2-0 11 00:00: 00 Yes APPLY THIN LAYER TO AFFECTED AREA IN GROIN/UNDE RARMS/LU STS EVERY DAY [facility] doxycycline hyclate 100 mg capsule 2-0 11 00:00: 00 Yes TAKE 1 CAPSULE BY MOUTH TWICE A DAY WITH FOOD AND WATER. DO NOT LIE DOWN ONE HOUR AFTER TAKING [facility] clindamycin 1 % gel 2022-0 5-11 00:00: 00 Yes APPLY THIN LAYER TO AFFECTED AREA IN GROIN/UNDE RARMS/LU STS EVERY DAY [facility] doxycycline hyclate 100 mg capsule 2-0 5-11 00:00: 00 Yes TAKE 1 CAPSULE BY MOUTH TWICE A DAY WITH FOOD AND WATER. DO NOT LIE DOWN ONE HOUR AFTER TAKING [facility] clindamycin 1 % gel 2-0 11 00:00: 00 Yes APPLY THIN LAYER TO AFFECTED AREA IN GROIN/UNDE RARMS/LU STS EVERY DAY [facility] doxycycline hyclate 100 mg capsule 2-0 08-05 00:00: 00 Yes TAKE 1 CAPSULE BY MOUTH TWICE A DAY WITH FOOD AND WATER. DO NOT LIE DOWN ONE HOUR AFTER TAKING [facility] clindamycin 1 % gel 2-0 11 00:00: 00 Yes APPLY THIN LAYER TO AFFECTED AREA IN GROIN/UNDE RARMS/LU STS EVERY DAY [facility] doxycycline hyclate 100 mg capsule 2-0 08-05 00:00: 00 Yes TAKE 1 CAPSULE BY MOUTH TWICE A DAY WITH FOOD AND WATER. DO NOT LIE DOWN ONE HOUR AFTER TAKING [facility] clindamycin 1 % gel 2-0 11 00:00: 00 Yes APPLY THIN LAYER TO AFFECTED AREA IN GROIN/UNDE RARMS/LU STS EVERY DAY [facility] doxycycline hyclate 100 mg capsule 2021-0 08-05 00:00: 00 Yes TAKE 1 CAPSULE BY MOUTH TWICE A DAY WITH FOOD AND WATER. DO NOT LIE DOWN ONE HOUR AFTER TAKING [facility] clindamycin 1 % gel 2-0 11 00:00: 00 Yes APPLY THIN LAYER TO AFFECTED AREA IN GROIN/UNDE RARMS/LU STS EVERY DAY [facility] doxycycline hyclate 100 mg capsule 2-0 11 00:00: 00 Yes TAKE 1 CAPSULE BY MOUTH TWICE A DAY WITH FOOD AND WATER. DO NOT LIE DOWN ONE HOUR AFTER TAKING [facility] clindamycin 1 % gel 2-0 11 00:00: 00 Yes APPLY THIN LAYER TO AFFECTED AREA IN GROIN/UNDE RARMS/LU STS EVERY DAY [facility] doxycycline hyclate 100 mg capsule 2-0 -11 00:00: 00 Yes TAKE 1 CAPSULE BY MOUTH TWICE A DAY WITH FOOD AND WATER. DO NOT LIE DOWN ONE HOUR AFTER TAKING [facility] clindamycin 1 % gel 2-0 11 00:00: 00 Yes APPLY THIN LAYER TO AFFECTED AREA IN GROIN/UNDE RARMS/LU STS EVERY DAY [facility] hy[facility]ate 100 mg capsule 2021-0 11 00:00: 00 Yes TAKE 1 CAPSULE BY MOUTH TWICE A DAY WITH FOOD AND WATER. DO NOT LIE DOWN ONE HOUR AFTER TAKING [facility] clindamycin 1 % gel 2021-0 08-05 00:00: 00 Yes APPLY THIN LAYER TO AFFECTED AREA IN GROIN/UNDE RARMS/LU STS EVERY DAY [facility] cl[facility] 1 % gel 2021-0 08-05 00:00: 00 Yes APPLY THIN LAYER TO AFFECTED AREA IN GROIN/UNDE RARMS/LU STS EVERY DAY [facility] doxycycline hyclate 100 mg capsule 2021-0 08-05 00:00: 00 Yes TAKE 1 CAPSULE BY MOUTH TWICE A DAY WITH FOOD AND WATER. DO NOT LIE DOWN ONE HOUR AFTER TAKING [facility] doxycycline hyclate 100 mg capsule 2021-0 08-05 00:00: 00 Yes TAKE 1 CAPSULE BY MOUTH TWICE A DAY WITH FOOD AND WATER. DO NOT LIE DOWN ONE HOUR AFTER TAKING [facility] clindamycin 1 % gel 2021-0 08-05 00:00: 00 Yes APPLY THIN LAYER TO AFFECTED AREA IN GROIN/UNDE RARMS/LU STS EVERY DAY [facility] doxycycline hyclate 100 mg capsule 2021-0 08-05 00:00: 00 Yes TAKE 1 CAPSULE BY MOUTH TWICE A DAY WITH FOOD AND WATER. DO NOT LIE DOWN ONE HOUR AFTER TAKING [facility] clindamycin 1 % gel 2021-0 11 00:00: 00 Yes APPLY THIN LAYER TO AFFECTED AREA IN GROIN/UNDE RARMS/LU STS EVERY DAY [facility] doxycycline hyclate 100 mg capsule 2021-0 11 00:00: 00 Yes TAKE 1 CAPSULE BY MOUTH TWICE A DAY WITH FOOD AND WATER. DO NOT LIE DOWN ONE HOUR AFTER TAKING [facility] No known medications 2020-0 5-13 16:00: 57 No [facility] propranoloL 10 mg tablet 08-07 15:08: 13 Yes propranolo l 10 mg tablet TAKE ONE TABLET BY MOUTH THREE TIMES A DAY NEEDED [facility] diphenhydra mine HCl (BENADRYL ALLERGY ORAL) 08-07 15:08: 13 Yes Take by mouth. [facility] propranoloL 10 mg tablet 08-07 15:08: 13 Yes propranolo l 10 mg tablet TAKE ONE TABLET BY MOUTH THREE TIMES A DAY NEEDED [facility] diphenhydra mine HCl (BENADRYL ALLERGY ORAL) 08-07 15:08: 13 Yes Take by mouth. [facility] propranoloL 10 mg tablet 08-07 15:08: 13 Yes propranolo l 10 mg tablet TAKE ONE TABLET BY MOUTH THREE TIMES A DAY NEEDED [facility] diphenhydra mine HCl (BENADRYL ALLERGY ORAL) 08-07 15:08: 13 Yes Take by mouth. [facility] diphenhydra mine HCl (BENADRYL ALLERGY ORAL) 08-07 15:08: 13 Yes Take by mouth. [facility] diphenhydra mine HCl (BENADRYL ALLERGY ORAL) 08-07 15:08: 13 Yes Take by mouth. [facility] diphenhydra mine HCl (BENADRYL ALLERGY ORAL) 08-07 15:08: 13 Yes Take by mouth. [facility] diphenhydra mine HCl (BENADRYL ALLERGY ORAL) 08-07 15:08: 13 Yes Take by mouth. [facility] diphenhydra mine HCl (BENADRYL ALLERGY ORAL) 08-07 15:08: 13 Yes Take by mouth. [facility] diphenhydra mine HCl (BENADRYL ALLERGY ORAL) 08-07 15:08: 13 Yes Take by mouth. [facility] diphenhydra mine HCl (BENADRYL ALLERGY ORAL) 08-07 15:08: 13 Yes Take by mouth. [facility] diphenhydra mine HCl (BENADRYL ALLERGY ORAL) 08-07 15:08: 13 Yes Take by mouth. [facility] diphenhydra mine HCl (BENADRYL ALLERGY ORAL) 08-07 15:08: 13 Yes Take by mouth. [facility] diphenhydra mine HCl (BENADRYL ALLERGY ORAL) 08-07 15:08: 13 Yes Take by mouth. [facility] diphenhydra mine HCl (BENADRYL ALLERGY ORAL) 08-07 15:08: 13 Yes Take by mouth. [facility] diphenhydra mine HCl (BENADRYL ALLERGY ORAL) 08-07 15:08: 13 Yes Take by mouth. [facility] diphenhydra mine HCl (BENADRYL ALLERGY ORAL) 08-07 15:08: 13 Yes Take by mouth. [facility] diphenhydra mine HCl (BENADRYL ALLERGY ORAL) 08-07 15:08: 13 Yes Take by mouth. [facility] diphenhydra mine HCl (BENADRYL ALLERGY ORAL) 08-07 15:08: 13 Yes Take by mouth. [facility] diphenhydra mine HCl (BENADRYL ALLERGY ORAL) 08-07 15:08: 13 Yes Take by mouth. [facility] diphenhydra mine HCl (BENADRYL ALLERGY ORAL) 08-07 15:08: 13 Yes Take by mouth. [facility] diphenhydra mine HCl (BENADRYL ALLERGY ORAL) 08-07 15:08: 13 Yes Take by mouth. [facility] diphenhydra mine HCl (BENADRYL ALLERGY ORAL) 08-07 15:08: 13 Yes Take by mouth. [facility] diphenhydra mine HCl (BENADRYL ALLERGY ORAL) 08-07 15:08: 13 Yes Take by mouth. [facility] diphenhydra mine HCl (BENADRYL ALLERGY ORAL) 08-07 15:08: 13 Yes Take by mouth. [facility] propranoloL 10 mg tablet 08-07 15:08: 13 Yes propranolo l 10 mg tablet TAKE ONE TABLET BY MOUTH THREE TIMES A DAY NEEDED [facility] diphenhydra mine HCl (BENADRYL ALLERGY ORAL) 08-07 15:08: 13 Yes Take by mouth. [facility] diphenhydra mine HCl (BENADRYL ALLERGY ORAL) 08-07 15:08: 13 Yes Take by mouth. [facility] diphenhydra mine HCl (BENADRYL ALLERGY ORAL) 08-07 15:08: 13 Yes Take by mouth. [facility] diphenhydra mine HCl (BENADRYL ALLERGY ORAL) 08-07 15:08: 13 Yes Take by mouth. [facility] diphenhydra mine HCl (BENADRYL ALLERGY ORAL) 08-07 15:08: 13 Yes Take by mouth. [facility] diphenhydra mine HCl (BENADRYL ALLERGY ORAL) 08-07 15:08: 13 Yes Take by mouth. [facility] diphenhydra mine HCl (BENADRYL ALLERGY ORAL) 08-07 15:08: 13 Yes Take by mouth. [facility] diphenhydra mine HCl (BENADRYL ALLERGY ORAL) 08-07 15:08: 13 Yes Take by mouth. [facility] propranoloL 10 mg tablet 08-07 15:08: 13 Yes propranolo l 10 mg tablet TAKE ONE TABLET BY MOUTH THREE TIMES A DAY NEEDED [facility] diphenhydra mine HCl (BENADRYL ALLERGY ORAL) 08-07 15:08: 13 Yes Take by mouth. [facility] diphenhydra mine HCl (BENADRYL ALLERGY ORAL) 08-07 15:08: 13 Yes Take by mouth. [facility] diphenhydra mine HCl (BENADRYL ALLERGY ORAL) 08-07 15:08: 13 Yes Take by mouth. [facility] propranoloL 10 mg tablet 08-07 15:08: 13 Yes propranolo l 10 mg tablet TAKE ONE TABLET BY MOUTH THREE TIMES A DAY NEEDED [facility] diphenhydra mine HCl (BENADRYL ALLERGY ORAL) 08-07 15:08: 13 Yes Take by mouth. [facility] norgestimat e-ethinyl estradioL 0.25-35 mg-mcg per tablet 08-07 00:00: 00 Yes [id number] 1{tbl} Take 1 tablet by mouth daily. [facility] norgestimat e-ethinyl estradioL 0.25-35 mg-mcg per tablet 08-07 00:00: 00 Yes [id number] 1{tbl} Take 1 tablet by mouth daily. [facility] norgestimat e-ethinyl estradioL 0.25-35 mg-mcg per tablet 08-07 00:00: 00 Yes [id number] 1{tbl} Take 1 tablet by mouth daily. [facility] norgestimat e-ethinyl estradioL 0.25-35 mg-mcg per tablet 08-07 00:00: 00 Yes [id number] 1{tbl} Take 1 tablet by mouth daily. [facility] norgestimat e-ethinyl estradioL 0.25-35 mg-mcg per tablet 08-07 00:00: 00 Yes [id number] 1{tbl} Take 1 tablet by mouth daily. [facility] norgestimat e-ethinyl estradioL 0.25-35 mg-mcg per tablet 08-07 00:00: 00 Yes [id number] 1{tbl} Take 1 tablet by mouth daily. [facility] norgestimat e-ethinyl estradioL 0.25-35 mg-mcg per tablet 08-07 00:00: 00 Yes [id number] 1{tbl} Take 1 tablet by mouth daily. [facility] norgestimat e-ethinyl estradioL 0.25-35 mg-mcg per tablet 08-07 00:00: 00 Yes [id number] 1{tbl} Take 1 tablet by mouth daily. [facility] norgestimat e-ethinyl estradioL 0.25-35 mg-mcg per tablet 08-07 00:00: 00 Yes [id number] 1{tbl} Take 1 tablet by mouth daily. [facility] norgestimat e-ethinyl estradioL 0.25-35 mg-mcg per tablet 08-07 00:00: 00 Yes [id number] 1{tbl} Take 1 tablet by mouth daily. [facility] norgestimat e-ethinyl estradioL 0.25-35 mg-mcg per tablet 08-07 00:00: 00 Yes [id number] 1{tbl} Take 1 tablet by mouth daily. [facility] norgestimat e-ethinyl estradioL 0.25-35 mg-mcg per tablet 08-07 00:00: 00 Yes [id number] 1{tbl} Take 1 tablet by mouth daily. [facility] norgestimat e-ethinyl estradioL 0.25-35 mg-mcg per tablet 08-07 00:00: 00 Yes [id number] 1{tbl} Take 1 tablet by mouth daily. [facility] norgestimat e-ethinyl estradioL 0.25-35 mg-mcg per tablet 08-07 00:00: 00 Yes [id number] 1{tbl} Take 1 tablet by mouth daily. [facility] norgestimat e-ethinyl estradioL 0.25-35 mg-mcg per tablet 08-07 00:00: 00 Yes [id number] 1{tbl} Take 1 tablet by mouth daily. [facility] norgestimat e-ethinyl estradioL 0.25-35 mg-mcg per tablet 08-07 00:00: 00 Yes [id number] 1{tbl} Take 1 tablet by mouth daily. [facility] norgestimat e-ethinyl estradioL 0.25-35 mg-mcg per tablet 08-07 00:00: 00 Yes [id number] 1{tbl} Take 1 tablet by mouth daily. [facility] norgestimat e-ethinyl estradioL 0.25-35 mg-mcg per tablet 08-07 00:00: 00 Yes [id number] 1{tbl} Take 1 tablet by mouth daily. [facility] norgestimat e-ethinyl estradioL 0.25-35 mg-mcg per tablet 08-07 00:00: 00 Yes [id number] 1{tbl} Take 1 tablet by mouth daily. [facility] norgestimat e-ethinyl estradioL 0.25-35 mg-mcg per tablet 08-07 00:00: 00 Yes [id number] 1{tbl} Take 1 tablet by mouth daily. [facility] [facility] norgestimat e-ethinyl estradioL 0.25-35 mg-mcg per tablet 08-07 00:00: 00 Yes [id number] 1{tbl} Take 1 tablet by mouth daily. [facility] norgestimat e-ethinyl estradioL 0.25-35 mg-mcg per tablet 08-07 00:00: 00 Yes [id number] 1{tbl} Take 1 tablet by mouth daily. [facility] norgestimat e-ethinyl estradioL 0.25-35 mg-mcg per tablet 08-07 00:00: 00 Yes [id number] 1{tbl} Take 1 tablet by mouth daily. [facility] norgestimat e-ethinyl estradioL 0.25-35 mg-mcg per tablet 08-07 00:00: 00 Yes [id number] 1{tbl} Take 1 tablet by mouth daily. [facility] norgestimat e-ethinyl estradioL 0.25-35 mg-mcg per tablet 08-07 00:00: 00 Yes [id number] 1{tbl} Take 1 tablet by mouth daily. [facility] norgestimat e-ethinyl estradioL 0.25-35 mg-mcg per tablet 08-07 00:00: 00 Yes [id number] 1{tbl} Take 1 tablet by mouth daily. [facility] norgestimat e-ethinyl estradioL 0.25-35 mg-mcg per tablet 08-07 00:00: 00 Yes [id number] 1{tbl} Take 1 tablet by mouth daily. [facility] norgestimat e-ethinyl estradioL 0.25-35 mg-mcg per tablet 08-07 00:00: 00 Yes [id number] 1{tbl} Take 1 tablet by mouth daily. [facility] norgestimat e-ethinyl estradioL 0.25-35 mg-mcg per tablet 08-07 00:00: 00 Yes [id number] 1{tbl} Take 1 tablet by mouth daily. [facility] norgestimat e-ethinyl estradioL 0.25-35 mg-mcg per tablet 08-07 00:00: 00 Yes [id number] 1{tbl} Take 1 tablet by mouth daily. [facility] norgestimat e-ethinyl estradioL 0.25-35 mg-mcg per tablet 08-07 00:00: 00 Yes [id number] 1{tbl} Take 1 tablet by mouth daily. [facility] norgestimat e-ethinyl estradioL 0.25-35 mg-mcg per tablet 08-07 00:00: 00 Yes [id number] 1{tbl} Take 1 tablet by mouth daily. [facility] norgestimat e-ethinyl estradioL 0.25-35 mg-mcg per tablet 08-07 00:00: 00 Yes [id number] 1{tbl} Take 1 tablet by mouth daily. [facility] norgestimat e-ethinyl estradioL 0.25-35 mg-mcg per tablet 08-07 00:00: 00 Yes [id number] 1{tbl} Take 1 tablet by mouth daily. [facility] norgestimat e-ethinyl estradioL 0.25-35 mg-mcg per tablet 08-07 00:00: 00 Yes [id number] 1{tbl} Take 1 tablet by mouth daily. [facility] norgestimat e-ethinyl estradioL 0.25-35 mg-mcg per tablet 08-07 00:00: 00 Yes [id number] 1{tbl} Take 1 tablet by mouth daily. [facility] desvenlafax ine succinate 50 mg 24 hr tablet 07-30 00:00: [address] [facility] desvenlafax ine succinate 50 mg 24 hr tablet 07-30 00:00: [address] [facility] desvenlafax ine succinate 50 mg 24 hr tablet 07-30 00:00: [address] [facility] desvenlafax ine succinate 50 mg 24 hr tablet 07-30 00:00: [address] [facility] desvenlafax ine succinate 50 mg 24 hr tablet 07-30 00:00: 00 Yes [facility] desvenlafax ine succinate 50 mg 24 hr tablet 07-30 00:00: [address] [facility] desvenlafax ine succinate 50 mg 24 hr tablet 07-30 00:00: [address] [facility] desvenlafax ine succinate 50 mg 24 hr tablet 07-30 00:00: [address] [facility] desvenlafax ine succinate 50 mg 24 hr tablet 505 00:00: 00 Yes [facility] desvenlafax ine succinate 50 mg 24 hr tablet 07-30 00:00: [address] [facility] desvenlafax ine succinate 50 mg 24 hr tablet 5-05 00:00: [address] [facility] desvenlafax ine succinate 50 mg 24 hr tablet 0 05 00:00: 00 Yes [facility] desvenlafax ine succinate 50 mg 24 hr tablet 0 05 00:00: 00 Yes [facility] desvenlafax ine succinate 50 mg 24 hr tablet 0 07-30 00:00: 00 Yes [facility] desvenlafax ine succinate 50 mg 24 hr tablet 0 07-30 00:00: 00 Yes [facility] desvenlafax ine succinate 50 mg 24 hr tablet 0 07-30 00:00: 00 Yes [facility] desvenlafax ine succinate 50 mg 24 hr tablet 0 07-30 00:00: [address] [facility] desvenlafax ine succinate 50 mg 24 hr tablet 0 07-30 00:00: 00 Yes [facility] desvenlafax ine succinate 50 mg 24 hr tablet 05 00:00: 00 Yes [facility] desvenlafax ine succinate 50 mg 24 hr tablet 0 05 00:00: 00 Yes [facility] desvenlafax ine succinate 50 mg 24 hr tablet 0 05 00:00: [address] [facility] [facility] desvenlafax ine succinate 50 mg 24 hr tablet 0 05 00:00: 00 Yes [facility] desvenlafax ine succinate 50 mg 24 hr tablet 0 05 00:00: 00 Yes [facility] desvenlafax ine succinate 50 mg 24 hr tablet 0 5-05 00:00: 00 Yes [facility] desvenlafax ine succinate 50 mg 24 hr tablet 0 -05 00:00: 00 Yes [facility] desvenlafax ine succinate 50 mg 24 hr tablet 0 505 00:00: 00 Yes [facility] desvenlafax ine succinate 50 mg 24 hr tablet 0 5-05 00:00: [address] [facility] desvenlafax ine succinate 50 mg 24 hr tablet 07-30 00:00: [address] [facility] desvenlafax ine succinate 50 mg 24 hr tablet 07-30 00:00: [address] [facility] desvenlafax ine succinate 50 mg 24 hr tablet 07-30 00:00: [address] [facility] desvenlafax ine succinate 50 mg 24 hr tablet 07-30 00:00: [address] [facility] desvenlafax ine succinate 50 mg 24 hr tablet 07-30 00:00: [address] [facility] desvenlafax ine succinate 50 mg 24 hr tablet 07-30 00:00: [address] [facility] desvenlafax ine succinate 50 mg 24 hr tablet 07-30 00:00: [address] [facility] desvenlafax ine succinate 50 mg 24 hr tablet 07-30 00:00: [address] [facility] desvenlafax ine succinate 50 mg 24 hr tablet 07-30 00:00: 00 [facility] norgestimat e-ethinyl estradioL (SPRINTEC) 0.25-35 mg-mcg per tablet 07-30 00:00: 00 08-28 04:59 :00 No [id number] TAKE 1 TABLET BY MOUTH ONCE DAILY DIRECTED Univers [facility] irbesartan 150 mg tablet 07-28 00:00: [address] [facility] irbesartan 150 mg tablet 07-28 00:00: [address] [facility] [facility] irbesartan 150 mg tablet 07-28 00:00: [address] [facility] irbesartan 150 mg tablet 07-28 00:00: [address] [facility] [facility] irbesartan 150 mg tablet 07-28 00:00: [address] [facility] irbesartan 150 mg tablet 07-28 00:00: 00 Yes [facility] irbesartan 150 mg tablet 07-28 00:00: 00 08-02 00:00 :00 No [facility] Immunizations Ordered Immunization Name Filled Immunization Name Date Status Comments Source SARS-COV-2 COVID-19 TRI-SUCROSE VACCINE 12 YRS+, BIVALENT 0.3ML, IM, (PFIZER MARQUEZ TOP) 2022-09-10 00:00:00 Completed [facility] SARS-COV-2 COVID-19 TRI-SUCROSE VACCINE 12 YRS+, BIVALENT 0.3ML, IM, (PFIZER MARQUEZ TOP) 2022-09-10 00:00:00 Completed [facility] SARS-COV-2 COVID-19 PFIZER TRI-SUCROSE VACCINE (MARQUEZ TOP) 2022-03-27 00:00:00 Completed [facility] SARS-COV-2 COVID-19 PFIZER TRI-SUCROSE VACCINE (MARQUEZ TOP) 2022-03-27 00:00:00 Completed [facility] SARS-COV-2 COVID-19 PFIZER TRI-SUCROSE VACCINE (MARQUEZ TOP) 2022-03-27 00:00:00 Completed [facility] SARS-COV-2 COVID-19 PFIZER TRI-SUCROSE VACCINE (MARQUEZ TOP) 2022-03-27 00:00:00 Completed [facility] SARS-COV-2 COVID-19 PFIZER TRI-SUCROSE VACCINE (MARQUEZ TOP) 2022-03-27 00:00:00 Completed [facility] SARS-COV-2 COVID-19 PFIZER TRI-SUCROSE VACCINE (MARQUEZ TOP) Unknown Completed [facility] SARS-COV-2 COVID-19 TRI-SUCROSE VACCINE 12 YRS+, BIVALENT 0.3ML, IM, (PFIZER MARQUEZ TOP) Unknown Completed [facility] SARS-COV-2 COVID-19 PFIZER TRI-SUCROSE VACCINE (MARQUEZ TOP) Unknown Completed [facility] SARS-COV-2 COVID-19 TRI-SUCROSE VACCINE 12 YRS+, BIVALENT 0.3ML, IM, (PFIZER MARQUEZ TOP) Unknown Completed [facility] SARS-COV-2 COVID-19 PFIZER TRI-SUCROSE VACCINE (MARQUEZ TOP) Unknown Completed [facility] SARS-COV-2 COVID-19 TRI-SUCROSE VACCINE 12 YRS+, BIVALENT 0.3ML, IM, (PFIZER MARQUEZ TOP) Unknown Completed [facility] SARS-COV-2 COVID-19 PFIZER TRI-SUCROSE VACCINE (MARQUEZ TOP) Unknown Completed [facility] SARS-COV-2 COVID-19 TRI-SUCROSE VACCINE 12 YRS+, BIVALENT 0.3ML, IM, (PFIZER MARQUEZ TOP) Unknown Completed [facility] SARS-COV-2 COVID-19 PFIZER TRI-SUCROSE VACCINE (MARQUEZ TOP) Unknown Completed [facility] SARS-COV-2 COVID-19 TRI-SUCROSE VACCINE 12 YRS+, BIVALENT 0.3ML, IM, (PFIZER MARQUEZ TOP) Unknown Completed [facility] SARS-COV-2 COVID-19 PFIZER TRI-SUCROSE VACCINE (MARQUEZ TOP) Unknown Completed [facility] SARS-COV-2 COVID-19 TRI-SUCROSE VACCINE 12 YRS+, BIVALENT 0.3ML, IM, (PFIZER MARQUEZ TOP) Unknown Completed [facility] SARS-COV-2 COVID-19 PFIZER TRI-SUCROSE VACCINE (MARQUEZ TOP) Unknown Completed [facility] SARS-COV-2 COVID-19 TRI-SUCROSE VACCINE 12 YRS+, BIVALENT 0.3ML, IM, (PFIZER MARQUEZ TOP) Unknown Completed [facility] SARS-COV-2 COVID-19 PFIZER TRI-SUCROSE VACCINE (MARQUEZ TOP) Unknown Completed [facility] SARS-COV-2 COVID-19 TRI-SUCROSE VACCINE 12 YRS+, BIVALENT 0.3ML, IM, (PFIZER MARQUEZ TOP) Unknown Completed [facility] SARS-COV-2 COVID-19 PFIZER TRI-SUCROSE VACCINE (MARQUEZ TOP) Unknown Completed [facility] SARS-COV-2 COVID-19 TRI-SUCROSE VACCINE 12 YRS+, BIVALENT 0.3ML, IM, (PFIZER MARQUEZ TOP) Unknown Completed [facility] SARS-COV-2 COVID-19 PFIZER TRI-SUCROSE VACCINE (MARQUEZ TOP) Unknown Completed [facility] SARS-COV-2 COVID-19 TRI-SUCROSE VACCINE 12 YRS+, BIVALENT 0.3ML, IM, (PFIZER MARQUEZ TOP) Unknown Completed [facility] SARS-COV-2 COVID-19 PFIZER TRI-SUCROSE VACCINE (MARQUEZ TOP) Unknown Completed [facility] SARS-COV-2 COVID-19 TRI-SUCROSE VACCINE 12 YRS+, BIVALENT 0.3ML, IM, (PFIZER MARQUEZ TOP) Unknown Completed [facility] SARS-COV-2 COVID-19 PFIZER TRI-SUCROSE VACCINE (MARQUEZ TOP) Unknown Completed [facility] SARS-COV-2 COVID-19 TRI-SUCROSE VACCINE 12 YRS+, BIVALENT 0.3ML, IM, (PFIZER MARQUEZ TOP) Unknown Completed [facility] SARS-COV-2 COVID-19 PFIZER TRI-SUCROSE VACCINE (MARQUEZ TOP) Unknown Completed [facility] SARS-COV-2 COVID-19 TRI-SUCROSE VACCINE 12 YRS+, BIVALENT 0.3ML, IM, (PFIZER MARQUEZ TOP) Unknown Completed [facility] SARS-COV-2 COVID-19 PFIZER TRI-SUCROSE VACCINE (MARQUEZ TOP) Unknown Completed [facility] SARS-COV-2 COVID-19 TRI-SUCROSE VACCINE 12 YRS+, BIVALENT 0.3ML, IM, (PFIZER MARQUEZ TOP) Unknown Completed [facility] SARS-COV-2 COVID-19 PFIZER TRI-SUCROSE VACCINE (MARQUEZ TOP) Unknown Completed [facility] SARS-COV-2 COVID-19 TRI-SUCROSE VACCINE 12 YRS+, BIVALENT 0.3ML, IM, (PFIZER MARQUEZ TOP) Unknown Completed [facility] SARS-COV-2 COVID-19 PFIZER TRI-SUCROSE VACCINE (MARQUEZ TOP) Unknown Completed [facility] SARS-COV-2 COVID-19 TRI-SUCROSE VACCINE 12 YRS+, BIVALENT 0.3ML, IM, (PFIZER MARQUEZ TOP) Unknown Completed [facility] SARS-COV-2 COVID-19 PFIZER TRI-SUCROSE VACCINE (MARQUEZ TOP) Unknown Completed [facility] SARS-COV-2 COVID-19 TRI-SUCROSE VACCINE 12 YRS+, BIVALENT 0.3ML, IM, (PFIZER MARQUEZ TOP) Unknown Completed [facility] SARS-COV-2 COVID-19 PFIZER TRI-SUCROSE VACCINE (MARQUEZ TOP) Unknown Completed [facility] SARS-COV-2 COVID-19 TRI-SUCROSE VACCINE 12 YRS+, BIVALENT 0.3ML, IM, (PFIZER MARQUEZ TOP) Unknown Completed [facility] SARS-COV-2 COVID-19 PFIZER TRI-SUCROSE VACCINE (MARQUEZ TOP) Unknown Completed [facility] SARS-COV-2 COVID-19 TRI-SUCROSE VACCINE 12 YRS+, BIVALENT 0.3ML, IM, (PFIZER MARQUEZ TOP) Unknown Completed [facility] SARS-COV-2 COVID-19 PFIZER TRI-SUCROSE VACCINE (MARQUEZ TOP) Unknown Completed [facility] SARS-COV-2 COVID-19 TRI-SUCROSE VACCINE 12 YRS+, BIVALENT 0.3ML, IM, (PFIZER MARQUEZ TOP) Unknown Completed [facility] SARS-COV-2 COVID-19 PFIZER TRI-SUCROSE VACCINE (MARQUEZ TOP) Unknown Completed [facility] SARS-COV-2 COVID-19 TRI-SUCROSE VACCINE 12 YRS+, BIVALENT 0.3ML, IM, (PFIZER MARQUEZ TOP) Unknown Completed [facility] SARS-COV-2 COVID-19 PFIZER TRI-SUCROSE VACCINE (MARQUEZ TOP) Unknown Completed [facility] SARS-COV-2 COVID-19 TRI-SUCROSE VACCINE 12 YRS+, BIVALENT 0.3ML, IM, (PFIZER MARQUEZ TOP) Unknown Completed [facility] SARS-COV-2 COVID-19 PFIZER TRI-SUCROSE VACCINE (MARQUEZ TOP) Unknown Completed [facility] SARS-COV-2 COVID-19 TRI-SUCROSE VACCINE 12 YRS+, BIVALENT 0.3ML, IM, (PFIZER MARQUEZ TOP) Unknown Completed [facility] SARS-COV-2 COVID-19 PFIZER TRI-SUCROSE VACCINE (MARQUEZ TOP) Unknown Completed [facility] SARS-COV-2 COVID-19 TRI-SUCROSE VACCINE 12 YRS+, BIVALENT 0.3ML, IM, (PFIZER MARQUEZ TOP) Unknown Completed [facility] SARS-COV-2 COVID-19 PFIZER TRI-SUCROSE VACCINE (MARQUEZ TOP) Unknown Completed [facility] SARS-COV-2 COVID-19 TRI-SUCROSE VACCINE 12 YRS+, BIVALENT 0.3ML, IM, (PFIZER MARQUEZ TOP) Unknown Completed [facility] SARS-COV-2 COVID-19 PFIZER TRI-SUCROSE VACCINE (MARQUEZ TOP) Unknown Completed [facility] SARS-COV-2 COVID-19 TRI-SUCROSE VACCINE 12 YRS+, BIVALENT 0.3ML, IM, (PFIZER MARQUEZ TOP) Unknown Completed [facility] Vital Signs Vital Name Observation Time Observation Value Comments S molly Systolic blood pressure 2023-06-23 20:39:00 124 mm[Hg] [facility] Diastolic blood pressure 2023-06-23 20:39:00 72 mm[Hg] [facility] Heart rate 2023-06-23 20:39:00 100 /min Un[facility] Oxygen saturation in Arterial blood by Pulse oximetry 2023-06-23 20:39:00 94 /min [facility] Body temperature 2023-06-23 20:16:00 36.5 Anel [facility] Respiratory rate 2023-06-23 20:16:00 18 /min [facility] Body height 2023-06-23 20:16:00 180.3 cm [facility] Body weight 2023-06-23 20:16:00 105.915 kg [facility] BMI 2023-06-23 20:16:00 32.57 kg/m2 [facility] Systolic blood pressure 2023-06-15 21:09:00 129 mm[Hg] [facility] Diastolic blood pressure 2023-06-15 21:09:00 82 mm[Hg] [facility] Heart rate 2023-06-15 21:09:00 83 /min Un[facility] Body height 2023-06-15 21:09:00 180.3 cm [facility] Body weight 2023-06-15 21:09:00 108.773 kg [facility] BMI 2023-06-15 21:09:00 33.45 kg/m2 [facility] Oxygen saturation in Arterial blood by Pulse oximetry 2023-06-15 21:09:00 98 /min [facility] Heart rate 2023-03-18 03:30:00 74 /min [facility] Respiratory rate 2023-03-18 03:30:00 15 /min [facility] Oxygen saturation in Arterial blood by Pulse oximetry 2023-03-18 03:30:00 97 /min [facility] Systolic blood pressure 2023-03-18 03:00:00 136 mm[Hg] [facility] Diastolic blood pressure 2023-03-18 03:00:00 69 mm[Hg] [facility] Body temperature 2023-03-18 01:47:00 37.39 Anel [facility] Body height 2023-03-18 01:47:00 180.3 cm [facility] Body weight 2023-03-18 01:47:00 106.142 kg [facility] BMI 2023-03-18 01:47:00 32.64 kg/m2 [facility] Systolic blood pressure 2023-03-16 19:50:00 139 mm[Hg] [facility] Diastolic blood pressure 2023-03-16 19:50:00 90 mm[Hg] [facility] Heart rate 2023-03-16 19:50:00 108 /min [facility] Oxygen saturation in Arterial blood by Pulse oximetry 2023-03-16 19:50:00 100 /min [facility] Body temperature 2023-03-16 19:49:00 36.61 Anel [facility] Respiratory rate 2023-03-16 19:49:00 18 /min [facility] Body height 2023-03-16 19:49:00 180.3 cm [facility] Body weight 2023-03-16 19:49:00 106.369 kg [facility] BMI 2023-03-16 19:49:00 32.71 kg/m2 [facility] Systolic blood pressure 2023-03-02 22:14:00 142 mm[Hg] [facility] Diastolic blood pressure 2023-03-02 22:14:00 88 mm[Hg] [facility] Heart rate 2023-03-02 22:14:00 74 /min [facility] Respiratory rate 2023-03-02 22:14:00 18 /min [facility] Oxygen saturation in Arterial blood by Pulse oximetry 2023-03-02 22:14:00 98 /min [facility] Body temperature 2023-03-02 19:16:00 37.28 Anel [facility] Body height 2023-03-02 19:16:00 180.3 cm Univ [facility] Body weight 2023-03-02 19:16:00 112.038 kg Univ [facility] BMI 2023-03-02 19:16:00 34.45 kg/m2 Univ [facility] Systolic blood pressure 2023-03-02 18:49:00 155 mm[Hg] [facility] Diastolic blood pressure 2023-03-02 18:49:00 84 mm[Hg] [facility] Heart rate 2023-03-02 18:48:00 101 /min Un[facility] Body temperature 2023-03-02 18:48:00 36.17 Anel [facility] Respiratory rate 2023-03-02 18:48:00 16 /min [facility] Body weight 2023-03-02 18:48:00 112.038 kg [facility] BMI 2023-03-02 18:48:00 34.45 kg/m2 [facility] Oxygen saturation in Arterial blood by Pulse oximetry 2023-03-02 18:48:00 100 /min [facility] Systolic blood pressure 2023-02-26 21:26:00 138 mm[Hg] [facility] Diastolic blood pressure 2023-02-26 21:26:00 85 mm[Hg] [facility] Heart rate 2023-02-26 21:26:00 91 /min [facility] Body temperature 2023-02-26 21:26:00 37.06 Anel [facility] Respiratory rate 2023-02-26 21:26:00 16 /min [facility] Body height 2023-02-26 21:26:00 180.3 cm [facility] Body weight 2023-02-26 21:26:00 111.131 kg [facility] BMI 2023-02-26 21:26:00 34.17 kg/m2 Univ [facility] Oxygen saturation in Arterial blood by Pulse oximetry 2023-02-26 21:26:00 98 /min [facility] Systolic blood pressure 2022-10-19 01:37:00 144 mm[Hg] [facility] Diastolic blood pressure 2022-10-19 01:37:00 87 mm[Hg] [facility] Heart rate 2022-10-19 01:36:00 94 /min [facility] Body temperature 2022-10-19 01:36:00 36.67 Anel [facility] Respiratory rate 2022-10-19 01:36:00 16 /min [facility] Body height 2022-10-19 01:36:00 180.3 cm Univ [facility] Body weight 2022-10-19 01:36:00 108.228 kg [facility] BMI 2022-10-19 01:36:00 33.28 kg/m2 [facility] Oxygen saturation in Arterial blood by Pulse oximetry 2022-10-19 01:36:00 99 /min [facility] Systolic blood pressure 2022-03-18 01:36:00 138 mm[Hg] [facility] Diastolic blood pressure 2022-03-18 01:36:00 85 mm[Hg] [facility] Heart rate 2022-03-18 01:36:00 100 /min [facility] Body temperature 2022-03-18 01:36:00 36.67 Anel [facility] Respiratory rate 2022-03-18 01:36:00 16 /min [facility] Body weight 2022-03-18 01:36:00 110.179 kg [facility] BMI 2022-03-18 01:36:00 33.88 kg/m2 [facility] Oxygen saturation in Arterial blood by Pulse oximetry 2022-03-18 01:36:00 97 /min [facility] Systolic blood pressure 2021-09-06 18:01:00 123 mm[Hg] [facility] Diastolic blood pressure 2021-09-06 18:01:00 84 mm[Hg] [facility] Heart rate 2021-09-06 18:01:00 90 /min [facility] Body temperature 2021-09-06 18:01:00 37.11 Anel [facility] Respiratory rate 2021-09-06 18:01:00 16 /min [facility] Body height 2021-09-06 18:01:00 180.3 cm [facility] Body weight 2021-09-06 18:01:00 107.366 kg [facility] BMI 2021-09-06 18:01:00 33.01 kg/m2 [facility] Oxygen saturation in Arterial blood by Pulse oximetry 2021-09-06 18:01:00 98 /min [place] [facility] Procedures Procedure Date / Time Performed Performing Clinician Source DME/SUPPLY JUSTIFICATION 2023-06-15 05:01:00 Doc tor Unassigned, [place] [facility] DME/SUPPLY JUSTIFICATION 2023-04-19 06:01:00 Doc tor Unassigned, [place] [facility] INSURANCE CORRESPONDENCE 2023-04-18 06:01:00 Doc marion Unassigned, [place] [facility] TRANSTHORACIC ECHO (TTE) COMPLETE W/ CONTRAST 2023-04-15 17:41:55 Kira Hollis [facility] SLEEP STUDY DATA REPORT 2023-04-12 06:01:00 Doct or Unassigned, [place] [facility] EKG-12 LEAD 2023-03-18 03:25:49 Roel Nix [facility] POCT TEST 2023-03-18 01:59:00 Roel Nix [facility] TROPONIN I 2023-03-18 01:58:00 Roel Nix [facility] COMP. METABOLIC PANEL ([id number]) 2023-03-18 01:58:00 Roel Nix [facility] CBC WITH DIFF 2023-03-18 01:58:00 Reol Nix [facility] D-DIMER 2023-03-18 01:58:00 Roel Nix [facility] N-TERMINAL PRO-BNP 2023-03-18 01:58:00 Roel Nix [facility] NOTICE OF PRIVACY PRACTICES 2023-03-18 01:38:49 Doctor Unassigned, [place] [facility] CONSENT/REFUSAL FOR DIAGNOSIS AND TREATMENT 2023-03-18 01:38:13 Doctor Unassigned, [place] [facility] POCT TEST 2023-03-02 20:30:00 Jerri Reyes [facility] URINALYSIS 2023-03-02 20:25:00 Monica Reyes [facility] CONSENT/REFUSAL FOR DIAGNOSIS AND TREATMENT 2023-03-02 19:08:39 Doctor Unassigned, [place] [facility] XR CHEST 2 VW 2023-02-26 21:44:08 Scotty Garrido [facility] POCT MOLECULAR STREP 2023-02-26 21:36:00 Unknown, Atte nding [facility] POCT SARS-COV-2 ANTIGEN (BINAX NOW) 2022-10-19 01:38:00 Neha Peralta [facility] POCT MOLECULAR STREP 2022-10-19 01:33:00 Ani Peralta [facility] SARS-COV-2 COVID-19 TRI-SUCROSE VACCINE 12 YRS+, BIVALENT 0.3ML, IM, (PFIZER MARQUEZ TOP) 2022-09-10 21:11:01 Kash Rangel [facility] ASSIGNMENT OF BENEFITS 2022-09-10 20:56:09 Docguido foley Unassigned, [place] [facility] SARS-COV-2 COVID-19 VACCINE 12 YRS+, 0.3ML,IM (PFIZER - MARQUEZ TOP) 2022-03-27 18:07:45 Doctor Unassigned, [place] [facility] POCT MOLECULAR STREP 2021-09-06 18:07:00 Nereyda Garrido [facility] POCT MOLECULAR FLU 2021-09-06 18:04:00 Scotty Garrido [facility] ASSIGNMENT OF BENEFITS 2021-09-06 17:51:43 Docto r Unassigned, [place] [facility] ASSIGNMENT OF BENEFITS 2020-08-07 19:27:12 Docto r Unassigned, [place] [facility] MEDICATION CORRESPONDENCE 2020-05-06 06:01:00 Do ctor Unassigned, [place] [facility] Encounters Start Date/Time End Date/Time Encounter Type Admission Type Attending [facility] Care Facility Care Department Encounter ID Source 2023-06-23 15:00:00 2023-06-23 15:20:00 [facility] 1.2840.114 350.1.13.10 4.2.7.2.686 [id number] [id number] [facility] 2023-06-23 15:00:00 2023-06-23 15:00:00 [facility] [id number] 2023-06-15 16:00:00 2023-06-15 16:37:40 Office Visit CesarwiltonChapin cordova [facility] 1.2840.114 350.1.13.10 4.2.7.2.686 [id number] [facility] 2023-06-15 16:00:00 2023-06-15 16:00:00 Outpatient R CHAPIN VILLANUEAV STRAAKArlin [facility] [id number] [facility] 2023-06-15 00:00:00 2023-06-15 00:00:00 Orders Only Doctor Unassigned, [place] [facility] 1.2840.114 350.1.13.10 4.2.7.2.686 [id number] [id number] [facility] 2023-04-26 00:00:00 2023-04-26 00:00:00 Telephone Chapin Villanueva [facility] 1.2840.114 350.1.13.10 4.2.7.2.686 [id number] [facility] 2023-04-20 00:00:00 2023-04-20 00:00:00 [facility] 1.2840.114 350.1.13.10 4.2.7.2.686 [id number] [facility] 2023-04-19 00:00:00 2023-04-19 00:00:00 Orders Only Doctor Unassigned, [place] [facility] 1.2.840.114 350.1.13.10 4.2.7.2.686 [id number] [id number] [facility] 2023-04-18 00:00:00 2023-04-18 00:00:00 Orders Only Doctor Unassigned, [place] [facility] 1.2.840.114 350.1.13.10 4.2.7.2.686 [id number] [id number] [facility] 2023-04-17 00:00:00 2023-04-17 00:00:00 [facility] Secure [facility] 1.2.840.114 350.1.13.10 4.2.7.2.686 [id number] [facility] 2023-04-15 15:38:17 2023-04-15 23:59:00 [facility] 1.2.840.114 350.1.13.10 4.2.7.2.686 [id number] [facility] 2023-04-15 15:30:00 2023-04-15 15:37:00 [facility] [id number] [facility] 2023-04-15 15:30:00 2023-04-15 15:37:00 [facility] 1.2.840.114 350.1.13.10 4.2.7.2.686 [id number] [facility] 2023-04-15 10:42:37 2023-04-15 15:29:00 [facility] 1.2.840.114 350.1.13.10 4.2.7.2.686 [id number] [facility] 2023-04-15 00:00:00 2023-04-15 00:00:00 Telephone Kira Hollis [facility] 1.2.840.114 350.1.13.10 4.2.7.2.686 [id number] [facility] 2023-04-12 14:00:00 2023-04-12 14:15:00 Diabetes Territory Manager Visit [facility] Sleep [facility] Chapin Villanueva [facility] 1.2.840.114 350.1.13.10 4.2.7.2.686 [id number] [facility] 2023-04-12 14:00:00 2023-04-12 14:00:00 Outpatient R CHAPIN VILLANUEVA STRAAKArlin [facility] [id number] [facility] 2023-04-12 00:00:00 2023-04-12 00:00:00 Orders Only Doctor Unassigned, [place] [facility] 1.2.840.114 350.1.13.10 4.2.7.2.686 [id number] 009 [id number] [facility] 2023-03-17 19:49:00 2023-03-17 21:44:00 Emergency X DINAH ROEL [facility] ERT [id number] [facility] 2023-03-17 19:49:00 2023-03-17 21:44:00 Emergency Dinah Roel [facility] 1.2.840.114 350.1.13.10 4.2.7.2.686 [id number] 084 [id number] [facility] 2023-03-17 00:00:00 2023-03-17 00:00:00 Orders Only Doctor Unassigned, [place] [facility] 1.114 350.1.13.10 4.2.7.2.686 [id number] [id number] [facility] 2023-03-17 00:00:00 2023-03-17 00:00:00 [facility] 1.0.114 350.1.13.10 4.2.7.2.686 [id number] 059 [id number] [facility] 2023-03-16 14:20:00 2023-03-16 14:33:10 Outpatient R TELMA [facility] [id number] [facility] 2023-03-16 14:20:00 2023-03-16 14:33:10 Office Visit Telma [facility] 1.114 350.1.13.10 4.2.7.2.686 [id number] [facility] 2023-03-02 13:18:00 2023-03-02 16:16:00 Emergency X CASEY MONICA [facility] ERT [id number] [facility] 2023-03-02 13:18:00 2023-03-02 16:16:00 Emergency Monica Reyes [facility] 1.114 350.1.13.10 4.2.7.2.686 [id number] [facility] 2023-03-02 12:30:00 2023-03-02 12:52:42 Outpatient R ROMINA LYONS [facility] [id number] [facility] 2023-03-02 12:30:00 2023-03-02 12:50:00 Nurse Visit Nurse, Andrew Zarate [facility] Unknown, Attending [facility] 1.84.114 350.1.13.10 4.2.7.2.686 [id number] [facility] 2023-02-26 15:36:59 2023-02-26 23:59:00 Hospital Encounter Scotty Garrido [facility] 1.840.114 350.1.13.10 4.2.7.2.686 [id number] [facility] 2023-02-26 15:20:00 2023-02-26 16:09:10 Outpatient R SCOTTY GARRIDO [facility] [id number] [facility] 2023-02-26 15:20:00 2023-02-26 15:40:00 Urgent Care Scotty Garrido Unknown, Attending [facility] 1.840.114 350.1.13.10 4.2.7.2.686 [id number] [facility] 2023-01-29 16:59:34 2023-01-29 16:59:34 Outpatient BJ SM[facility] [id number] [facility] 2022-10-18 20:40:00 2022-10-18 21:00:00 Urgent Care Neha Peralta [facility] 1.840.114 350.1.13.10 4.2.7.2.686 [id number] [facility] 2022-10-18 20:40:00 2022-10-18 20:40:00 Outpatient R NEHA PERALTA [facility] [id number] [facility] 2022-09-10 16:00:00 2022-09-10 16:20:00 Nurse Visit Nurse, Andrew Christianson, Attending [facility] 1.840.114 350.1.13.10 4.2.7.2.686 [id number] [facility] 2022-09-10 16:00:00 2022-09-10 16:00:00 Outpatient R UNKNOWN, ATTENDING [facility] [id number] [facility] 2022-09-10 00:00:00 2022-09-10 00:00:00 Orders Only Doctor Unassigned, [place] [facility] 1.2.840.114 350.1.13.10 4.2.7.2.686 [id number] [facility] 2022-07-31 00:00:00 2022-07-31 00:00:00 Refill Glenn Melara [facility] 1..840.114 350.1.13.10 4.2.7.2.686 [id number] [facility] 2022-03-27 12:00:00 2022-03-27 12:10:00 Imm/Inj Visit Vaccine, Ang Db Uc LobatoMalcom [facility] 1..840.114 350.1.13.10 4.2.7.2.686 [id number] [facility] 2022-03-27 12:00:00 2022-03-27 12:00:00 Outpatient R EDITABEN SCOTTY [facility] [id number] [facility] 2022-03-17 19:30:00 2022-03-17 20:05:15 Outpatient R GLENN MELARA III [facility] [id number] [facility] 2022-03-17 19:30:00 2022-03-17 20:05:15 Urgent Care Glenn Melara [facility] 1..840.114 350.1.13.10 4.2.7.2.686 [id number] [facility] 2021-09-07 00:00:00 2021-09-07 00:00:00 Letter (Out) Kathy Scherer [facility] 1.2.840.114 350.1.13.10 4.2.7.2.686 [id number] [facility] 2021-09-06 13:00:00 2021-09-06 13:20:34 Outpatient R SC[address]TY GARRIDO [facility] [id number] [facility] 2021-09-06 13:00:00 2021-09-06 13:20:34 Urgent Care Radhika [facility] 1.2840.114 350.1.13.10 4.2.7.2.686 [id number] [facility] 2021-09-06 00:00:00 2021-09-06 00:00:00 Orders Only Doctor Unassigned, [place] [facility] 1.2840.114 350.1.13.10 4.2.7.2.686 [id number] [facility] 2021-09-06 00:00:00 2021-09-06 00:00:00 Letter (Out) Doctor Unassigned, [place] [facility] 1.2840.114 350.1.13.10 4.2.7.2.686 [id number] [facility] 2021-08-10 10:00:00 2021-08-10 10:00:00 Outpatient R KARMEN LETHA [facility] [id number] [facility] 2020-08-07 14:30:00 2020-08-07 14:30:00 Outpatient R LETHA PERAZA [facility] [id number] [facility] 2020-08-07 00:00:00 2020-08-07 00:00:00 Orders Only Doctor Unassigned, [place] [facility] 1.2840.114 350.1.13.10 4.2.7.2.686 [id number] [facility] 2020-06-12 15:30:00 2020-06-12 15:30:[address] [facility] [id number] Mark castillo [facility] 2020-05-06 00:00:00 2020-05-06 00:00:00 Orders Only Doctor Unassigned, [place] [facility] 1.2.840.114 350.1.13.10 4.2.7.2.686 [id number] [facility] Results Test Description Test Time Test Comments Results Result Co mments Source [facility] [id number] 02:38:45* Test Item Value Reference Range Interpretation Comme nts TROPONIN I (test code = 7079033832) 0.009 ng/mL <=0.034 MAILE (test code = MAILE) Reference (Normal) Range (defined by the 99th percentile reference limit): <= 0.034 ng/mL Note: Cardiac troponin begins to rise 3-4 hours after the onset of ischemia. Repeat in 4-6 hours if the sample was drawn within 3-4 hours of the onset of the symptom and found normal. Diagnosis of myocardial injury is made with acute changes in cTn concentrations with at least one serial sample above the 99th percentile upper reference limit (URL), taken together with the patient's clinical presentation. Biotin has been reported to cause a negative bias, interpret results relative to patient's use of biotin. Lab Interpretation (test code = 60384-5) Normal [facility] [id number] 02:36:04* Test Item Value Reference Range Interpretation Comme nts NT-proBNP (test code = 25842-0) 47 pg/mL <=125 Lab Interpretation (test cod e = 73137-5) Normal [facility]OLIC PANEL (28271)2023-03-18 02:27:05* Test Item Value Reference Range Interpretation Comme nts NA (test code = 6567506985) 138 mmol/L 135-145 K (test code = 3637061903) 4.1 mmol/L 3.5-5.0 CL (test code = 9761524310) 105 mmol/L 98-108 CO2 TOTAL (test code = 8639328454) 25 mmol/L 23-31 AGAP (test code = 7871584788) 8 2-16 BUN (test code = 5762516462) 9 mg/dL 7-23 GLUCOSE (test code = 9406388512) 96 mg/dL 70-110 CREATININE (test code = 5384297759) 0.80 mg/dL 0.50-1.04 TOTAL BILI (test code = 3126870737) 0.3 mg/dL 0.1-1.1 CALCIUM (test code = 0668220527) 10.1 mg/dL 8.6-10.6 T PROTEIN (test code = 6837136528) 8.4 g/dL 6.3-8.2 H ALBUMIN (test code = 2794555242) 4.4 g/dL 3.5-5.0 ALK PHOS (test code = 2406190283) 77 U/L 34-122 ALTv (test code = 1742-6) 46 U/L 5-35 H AST(SGOT) (test code = 2773870997) 31 U/L 13-40 eGFR (test code = 06023-9) 101.8 mL/min/1.73m2 CKD-EPI eGFR (2020). Assuming creatinine has been stable day-to-day for at least three months, the eGFR indicates Category G1 (>= 90 mL/min/1.73 m2) Lab Interpretation (test code = 58929-0) Abnormal [facility]-[id number] 02:24:23* Test Item Value Reference Range Interpretation Comments D-DIMER (test code = 3880769382) 0.38 See_Comment [Automated message] The system which generated this result transmitted reference range: <0.41 ?g/mL (FEU). The reference range was not used to interpret this result as normal/abnormal. MAILE (test code = MAILE) This test may be used in conjunction with a clinical pretest probability (PTP) assessment model to exclude venous thromboembolism (VTE) in patients suspected of deep venous thrombosis (DVT) and pulmonary embolism (PE) A D-Dimer value less than 0.50 ?g/ml (FEU) has a negative predicative value of 96 to 100% (95% CI)and 97 to 100% (95% CI) as an aid in the diagnosis of deep vein thrombosis (DVT) and pulmonary embolism when there is low or moderate pretest probability of PE or DVT. D-Dimer values are expressed in initial fibrinogen equivalent units (FEU)" The assay results should be used with other information, including the clinical context, in forming a diagnosis. Lab Interpretation (test code = 29450-7) Normal [facility] WITH [id number] 02:17:06* Test Item Value Reference Range Interpretation Comme nts WBC (test code = 6690-2) 10.32 See_Comment [Automated [employer]a ge] The system which generated this result transmitted reference range: 4.30 - 11.10 10*3/?L. The reference range was not used to interpret this result as normal/abnormal. RBC (test code = 789-8) 4.33 See_Comment [Automated [employer]a ge] The system which generated this result transmitted reference range: 3.93 - 5.25 10*6/?L. The reference range was not used to interpret this result as normal/abnormal. HGB (test code = 718-7) 13.0 g/dL 11.6-15.0 HCT (test code = 4544-3) 39.2 % 35.7-45.2 MCV (test code = 787-2) 90.5 fL 80.6-95.5 MCH (test code = 785-6) 30.0 pg 25.9-32.8 MCHC (test code = 786-4) 33.2 g/dL 31.6-35.1 RDW-SD (test code = 18396-6) 41.5 fL 39.0-49.9 RDW-CV (test code = 788-0) 12.6 % 12.0-15.5 PLT (test code = 777-3) 352 See_Comment [Automated [employer]a ge] The system which generated this result transmitted reference range: 166 - 358 10*3/?L. The reference range was not used to interpret this result as normal/abnormal. MPV (test code = 13958-6) 11.6 fL 9.5-12.9 NRBC/100 WBC (test code = 8831977647) 0.0 See_Comment [Automated [employer] ssage] The system which generated this result transmitted reference range: 0.0 - 10.0 /100 WBCs. The reference range was not used to interpret this result as normal/abnormal. NRBC x10^3 (test code = 1484346958) See_Comment [Automated messa ge] The system which generated this result transmitted reference range: 10*3/?L. The reference range was not used to interpret this result as normal/abnormal. GRAN MAT (NEUT) % (test code = 770-8) 57.5 % IMM GRAN % (test code = 7801501655) 0.20 % LYMPH % (test code = 736-9) 33.0 % MONO % (test code = 5905-5) 7.2 % EOS % (test code = 713-8) 1.6 % BASO % (test code = 706-2) 0.5 % GRAN MAT x10^3(ANC) (test code = 5960384255) 5.93 10*3/uL 1.88-7.09 IMM GRAN x10^3 (test code = 7603491830) 0.00-0.06 LYMPH x10^3 (test code = 731-0) 3.41 10*3/uL 1.32-3.29 H MONO x10^3 (test code = 742-7) 0.74 10*3/uL 0.33-0.92 EOS x10^3 (test code = 711-2) 0.17 10*3/uL 0.03-0.39 BASO x10^3 (test code = 704-7) 0.05 10*3/uL 0.01-0.07 Lab Interpretation (test code = 66586-9) Abnormal [facility] [id number] 01:59:00* Test Item Value Reference Range Interpretation Comme nts POCT PREG (test code = 1605) Negative On board controls acceptable with C Line (test code = 3574) Yes POCT PREG LOT # (test code = 3575) [id number] POCT PREG TEST DATE ( test code = 3576) 2024-06-05 Lab Interpretation (test cod e = 54732-9) Normal [facility] [id number] 20:31:00* Test Item Value Reference Range Interpretation Comme nts POCT PREG (test code = 1605) Negative On board controls acceptable with C Line (test code = 3574) No POCT PREG LOT # (test code = 3575) [id number] POCT PREG TEST DATE ( test code = 3576) 2024-06-05 Lab Interpretation (test cod e = 78419-5) Normal [facility] MOLECULAR [id number] 21:44:16* Test Item Value Reference Range Interpretation Comme nts POCT Molecular Strep (test c ode = 46355-2) Negative Negative Lab Interpretation (test cod e = 86314-3) Normal [facility] MOLECULAR [id number] 01:41:30* Test Item Value Reference Range Interpretation Comme nts POCT Molecular Strep (test c ode = 88482-3) Negative Negative Lab Interpretation (test cod e = 47336-6) [facility] SARS-COV-2 ANTIGEN (BINAX NOW)2022-10-19 01:38:00* Test Item Value Reference Range Interpretation Comme nts POCT SARS-COV-2 ANTIGEN (test code = 29990-9) Positive Not Detected A On board controls acceptable with C Line (test code = 3574) Yes MAILE (test code = MAILE) accurate developme nt and interpretation of all internal controls Lab Interpretation (test code = 74508-0) Abnormal [facility] MOLECULAR [id number] 18:16:06* Test Item Value Reference Range Interpretation Comme nts POCT Molecular FluA (test co de = 19858-7) Negative Negative POCT Molecular FluB (test co de = 77202-1) Negative Negative Lab Interpretation (test cod e = 04920-4) Normal [facility] MOLECULAR [id number] 18:14:41* Test Item Value Reference Range Interpretation Comme nts POCT Molecular Strep (test c ode = 18562-2) Negative Negative Lab Interpretation (test cod e = 59699-9) [facility] Notes Date/Time Note Provider Source 2023-04-27 08:53:24 +6xPjLA2cLa3nbdADtZ30RKZri57I+ZTx+IYSKVZ pY xawWatSgKLIywO1CLC90Ux6218-79-36P50:53:24F ormatting of this note might be different from the original.Returned pt's call on 04/27. 66696-2Lzywarytr encounter YmnpLX8582-63-26F81:54:08Telephone encounter NoteTXT1.2.840.606697.1.13.104.2.7.2.35334 9|[id number] for patient vudy58280-9JmniWCYJMAQHRCMYtyavmodq C-CDA narrative zsdh033372611Nedttbth Mono[address] [id number] PEKGBXYIIKICTFLD2782-85-84A59:54:081.2.840 .607002.1.72.3.15|1.2.840.575503.1.13.104. 2.7.2.727879_[id number] [address] Vill[address] [facility] 2023-04-26 16:16:57 JClB9HDr1xzejPXMuJhGi2a+dqVt8fRG+Vqgf+gQ 3f Gh0iH+Iyn2roYCzyH6+UJr8712-00-13T40:16:57F ormatting of this note might be different from the original.Tristan Barragan is a 32 year old female Pt returning the clinics call from [facility] about her Sleep study appt. Please advise 99408-3Wayppydza encounter KkgxWL2440-32-85Q96:19:00Telephone encounter NoteTXT1.2.840.353945.1.13.104.2.7.2.08390 9|[id number] for patient xitq37646-3IdcmLYQSYGEMUVFYkiyjzmda C-CDA narrative nzbb416197799Vejhloq D [id number] AOTQYPUXDBBIQGBW6499-05-64G57:19:001.2.840 .342740.1.72.3.15|1.2.840.941368.1.13.104. 2.7.2.727879_[id number] Yesy Jolly [facility] 2023-04-21 08:38:16 jc9ZzCijQeEtl6vp3rZ41/o7EG4MGdOw8hPJSy6Z 2t MFkhwhV/gPDRuMN3OF1v0s0166-89-30H31:38:16F ormatting of this note might be different from the original.Images from the original note were not included.Notified patient per DR. Hollis:Kira Hollis MD P Cardiology NursePlease make an appointment with sleep clinic Dr. Villanueva for obstructive sleep apneaPatient verbal understanding and stated she has an appt for May at 4:00 PM. 49698-9Fucwwdtwj encounter CtkiEJ4726-75-95O25:39:17Telephone encounter NoteTXT1.2.840.577476.1.13.104.2.7.2.11844 9|[id number] for patient ymwk61773-6VopcMOUMMQRUZFLVuuxxtrph C-CDA narrative oscs631707597Ywcsweajq D Garcia MA[address] VhbjNnepxwrvwTjkbcxhmbKYKS8057313325PMATOQ FPXZOCQWEUSWMZCE4810-13-22G40:39:171.2.840 .517500.1.72.3.15|1.2.840.128914.1.13.104. 2.7.2.727879_[id number] Pam Real MA [facility] 2023-04-20 11:29:13 y4x6+H1PFszQzhTPl4SKL3VKVOrQ8i0KuhDSRPMT ZH koQbmiW/bQNHJyKBN622s14728-69-39Y30:29:13F ormatting of this note might be different from the original.Tristan Barragan is a 32 year old femalePt returning call for lab results thank you 72152-6Enupwqxlk encounter OstdYC5844-70-37Z10:30:19Telephone encounter NoteTXT1.2.840.509281.1.13.104.2.7.2.92853 9|[id number] for patient izsv95526-5JpuvPCWDGGKBOHEUerjdndiu C-CDA narrative azmr790621079Pbfnjfe Tsuruta Moreno [address] EiqyCaoabktehNtqvandkuKETS0024527496UXUAMR KCDHHPJJMGQSOSEO9587-36-71L72:30:191.2.840 .500473.1.72.3.15|1.2.840.210276.1.13.104. 2.7.2.727879_[id number] Ligia Ch [address] [facility] 2023-04-20 11:22:27 dG2L+OwvsZOmOqcNPX5X0dGjTdcPDfxMg9/1Vqcv Lx +10abJCZD2EJVdgsYkJNt88071-84-34H96:22:27F ormatting of this note might be different from the original.Images from the original note were not included.Attempted to contact patient to discuss test results, no answer I left a voice message to call back.Kira Hollis MD P Cardiology NursePlease make an appointment with sleep clinic Dr. Villanueva for obstructive sleep apnea 04721-9Wbfnlxjwh encounter DcjoRB6174-95-31S40:22:56Telephone encounter NoteTXT1.2.840.463835.1.13.104.2.7.2.07261 9|[id number] for patient lupc42808-8RrkgVMMJJTYXHWMDzrqsognq C-CDA narrative text[address] Freeman [id number] GXOLRYAGQOLVYTSH7350-53-03S59:22:561.2.840 .931548.1.72.3.15|1.2.840.097506.1.13.104. 2.7.2.727879_[id number] [facility] 2023-04-15 16:00:00 vWhdaKb/HpDLFIMWsfjVztjCSCh2Ty23nOGJJeyJ QW cJfqq2V3jLieUQKcpAnk2I1270-15-66M48:00:00F ormatting of this note might be different from the original.[employer] 30-day event monitor applied to patient. Wear and care explained. Patient verbalized understanding. Patient given instruction on how to return monitor on 05/16/23 to [employer]. 68104-1Wxhrd GgnyAB1731-53-21I39:39:16Nurse NoteTXT1.2.840.659259.1.13.104.2.7.2.85497 9|[id number] for patient etus94568-5Ecxiz NoteLNNARRATIVEFormatted C-CDA narrative [id number] Sheavly RNUT55 Thornton [id number] XNUGTRGEDKSHDMMS1868-65-02E61:39:161.2.840 .752486.1.72.3.15|1.2.840.273125.1.13.104. 2.7.2.727879_[id number] Rianna Trinidad RN [facility] 2023-04-15 15:36:36 LHWcqNmc3RwtQ6N1SqR31NmN5LXNBwT6oWjobrOZ 40 rn50MOXeJJTmml7UaOIcdL4776-28-50C07:36:36F ormatting of this note might be different from the original.Placing new order for 30 day event monitor because patient ended up coming in person for event monitor supervisor steno pool. Mail out monitor cancelled. 28383-9Zjynnaeis encounter JamiQZ3191-33-25D05:38:43Telephone encounter NoteTXT1.2.840.222192.1.13.104.2.7.2.04930 9|[id number] for patient mzbn76225-0IcxjVCHDFYBRGKZMdzkanrkn C-CDA narrative textUT[address] He[id number] KPIOQVOHATWOWJLN7518-31-92D66:38:431.2.840 .779076.1.72.3.15|1.2.840.816926.1.13.104. 2.7.2.727879_[id number] [facility] 2023-03-18 08:34:08 4+4bzrRcDT8EsENnB94/+ApQZkeoKZIJEm+oNsq/ lh UWhOfPuqUO9dQLjNXGb+kd0680-62-63E73:34:08F ormatting of this note might be different from the original.LVM that Rx has been sent , take 2 10mg tablets BID until she picks up her medicationsIncreased dosage Propranolol sent [facility] [address] [place] [address] WESTPhone: Kpvqauqeuheddf signed by Dorcas Dash RN at 03/18/2023 8:35 AM RIE06526-7Kodkdgpbb encounter RcbkTL8630-26-87X91:35:51Telephone encounter NoteTXT1.2.840.708682.1.13.104.2.7.2.92838 9|[id number] for patient eocz57456-3NlwgFRRDRRICZUWKorogdrvy C-CDA narrative textUT[address] [id number] IZHQKEEXAUHGAYXZ4561-64-93U97:35:511.2.840 .707225.1.72.3.15|1.2.840.963452.1.13.104. 2.7.2.727879_[id number] [facility] 2023-03-17 21:43:53 d2Fqt4ovWDQFHDKWvQYtiunc9xpEteYRzN2MWeim Xp /WOfmik0PvlUj1nNNMHySt6979-08-38Q69:43:53F ormatting of this note might be different from the original.Pt given printed and verbal discharge instructions regarding chest painDiscussed ibuprofen and to take with food to avoid GI distress.Pt verbalized understanding of instructions, pt awake alert oriented, resp reg unlabored, skin w/d, color appropriate for race, moves all ext well,pt encouraged to follow up with pcpAdvised to seek medical attention for new/prolonged/worsening of symptomsPIV d'cd, dressing to site, catheter in tact.Awake, alert oriented, resp reg unlabored, skin w/d, pt leaving amb with steady gait, in no apparent distress, 13278-6Gebefmnqr department KwdlEV1364-13-11I72:44:27[facility] NoteTXT1.2.840.992876.1.13.104.2.7.2.10935 9|[id number] for patient lpxh83066-6ZxuqLXZKDZOWJJYQhpnxedow C-CDA narrative rmxh995565865Gmzygj-Sdxfo McInnis RNUT[address] [id number] EDRJXDNQDDCDBZYI8318-04-59B57:44:271.2.840 .198533.1.72.3.15|1.2.840.348488.1.13.104. 2.7.2.727879_[id number] Lydia Shi RN [facility] 2023-03-17 19:44:24 dryhHIwdhzkyZPAJsSkBHXg4Dy7xajQMM0XWI1Qy wX OUWOeHnVi3nr4GX4IFNqjI2546-38-20X05:44:24F ormatting of this note might be different from the original.Patient ambulatory c/o dull aching chest pain that comes intermittently for the past 2 weeks. Saw neuro psych sales specialist and they recommended a 30 day monitor and echo scheduled for March. Patient states the pain starts in left side of her neck to left side of her chest down to left hip. 44100-0Mzqqbimbc department Triage ahnjQW7760-95-93Q51:47:43[facility] Triage noteTXT1.2.840.454297.1.13.104.2.7.2.79577 9|[id number] for patient cgit99554-5Xvvvamdng department NoteLNNARRATIVEFormatted C-CDA narrative textUT[address] Pb[id number] CWDRMLKCJEDXQHLM7893-77-16S22:47:431.2.840 .253399.1.72.3.15|1.2.840.600992.1.13.104. 2.7.2.727879_[id number] [facility] 2023-03-17 19:38:00 ncuTV2up2MZRlI3xIso/Lqz6BIACyu+2RGCMomnu e6 Dc8znmiuVfLXLkpA8XjVaV9718-39-39S27:38:00A ssociated Order(s): EKG-12 Lead ROUTINE ONCEPre-Procedure Diagnose(s): Chest pain, unspecified typePost-Procedure Diagnose(s): Chest pain, unspecified type [facility] Emergency Department NotePatient Name: Tristan Boland of : 1990 32 year old femaleTreatment Room: [facility] FT/VRIH40-16Ebbcore Record Number: [id number] Care Physician: Sofia MelaraPatient Escorted by: Self [9]Mode of Arrival: Personal means [1]EMS Treatment Prior to ED 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 Symptoms started with influenza diagnosis about 2 weeks ago, was treated with prednisone and promethazine for persistent cough. Last week, started to have palpitations with HR up to 150s. She has noticed left sided dull aching pain, not pleuritic, not associated with diaphoresis or exertion. The pain is more prominent this evening, remains mild but longer periods of pain and now associated with exertional dyspnea. No calf pain/swelling. No personal history of VTE but both sets of grand parents have had blood clots. The patient has been taking estrogen containing OCPs and for the last 4 months has skipped the placebo pills. She has seen cardiology for the chest pain yesterday, and is set up to get outpatient echo and also Holter. 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.Past Medical History/Immunizations:Past Medical History:Diagnosis DateAnxietyDepressionHypertensionPap smear abnormality of cervixTetanus received in last 5 years: YesChildhood immunizations: Jd-cy-lzfnUxlvgghhz:AllergiesAllergen ReactionsLisinopril Shortness of BreathOther reaction(s): Breathing issuesPenicillins Shortness of BreathOther reaction(s): Breathing issuesSulfa (Sulfonamide Antibiotics) Shortness of BreathOther reaction(s): Breathing issuesBuspirone Other - See commentsPast Social History:Tobacco UseEvery Day; 0.25 packs/day for 10.00 years; Types: CigarettesSmokeless Tobacco: Never used smokeless tobacco.Vaping UseEvery day; Substances: NicotineAlcohol UseYes.Comments: socialDrug UseNever.Sexual ActivitySexually active; Partners: Male; Control/Protection: Pill.Past Surgical History:Past Surgical History:Procedure Laterality DateLEG/ANKLE SURGERY PROC UNLISTEDReview of Systems:Review of SystemsConstitutional: Negative for chills, diaphoresis and fever.HENT: Negative for congestion.Respiratory: Negative for cough and shortness of breath.Cardiovascular: Positive for chest pain and palpitations. Negative for leg swelling.Gastrointestinal: Negative for abdominal pain, nausea and vomiting.Genitourinary: Negative for dysuria and frequency.Musculoskeletal: Negative for back pain.Skin: Negative for rash.Neurological: Negative for dizziness, syncope, weakness, numbness and headaches.Psychiatric/Behavioral: Negative for confusion.Physical Exam:ED Triage Vitals [03/17/231946]Weight 106.1 kg (234 lb)Actual or estimated Estimated by patient/family reportHeight 1.803 m (5' 11")BP (!) 155/94Pulse 99Resp 18Temp 37.4 ?C (99.3 ?F)Temp source OralSpO2 100 %Measured on Room airPhysical ExamVitals and nursing note reviewed.Constitutional:General: She is not in acute distress.Appearance: Normal appearance. She is well-developed. She is not ill-appearing, toxic-appearing or diaphoretic.HENT:Head: Normocephalic and atraumatic.Eyes:General: No scleral icterus.Conjunctiva/sclera: Conjunctivae normal.Cardiovascular:Rate and Rhythm: Normal rate and regular rhythm.Pulses: Normal pulses.Heart sounds: Normal heart sounds. No murmur heard.No friction rub. No gallop.Pulmonary:Effort: Pulmonary effort is normal. No respiratory distress.Breath sounds: Normal breath sounds. No stridor. No wheezing, rhonchi or rales.Abdominal:General: Abdomen is flat. There is no distension.Palpations: There is no mass.Tenderness: There is no abdominal tenderness. There is no guarding or rebound.Musculoskeletal:Cervical back: Normal range of motion and neck supple. No rigidity.Right lower leg: No edema.Left lower leg: No edema.Comments: There is no calf asymmetry or edema or tenderness.Skin:General: Skin is warm and dry.Capillary Refill: Capillary refill takes less than 2 seconds.Coloration: Skin is not pale.Findings: No erythema or rash.Neurological:General: No focal deficit present.Mental Status: She is alert and oriented to person, place, and time.Motor: No weakness.Gait: Gait normal.Psychiatric:Mood and Affect: Mood normal.Behavior: Behavior normal.Radiology:XR CHEST 1 VWPreliminary ResultEXAM: XR CHEST 1 VWCOMPARISON: 03/16/2023HISTORY:32 years old, Female with Chest pain .FINDINGS:Lungs/Pleura: Lung volumes are normal. No focal consolidation. No pleuraleffusions or pneumothorax.Heart/Mediastinum: The cardiac silhouette appears normal.Bones and soft tissues: No acute osseous abnormality is identified.IMPRESSIONNo acute cardiopulmonary process.Preliminary Report Dictated by Resident: Elier Hernandes Results:Lab ResultsCOMP. METABOLIC PANEL (91203) - AbnormalResult Value Ref RangeNA 138 135 - 145 mmol/LK 4.1 3.5 - 5.0 mmol/LCL 105 98 - 108 mmol/LCO2 TOTAL 25 23 - 31 mmol/LAGAP 8 2 - 16BUN 9 7 - 23 mg/dLGLUCOSE 96 70 - 110 mg/dLCREATININE 0.80 0.50 - 1.04 mg/dLTOTAL BILI 0.3 0.1 - 1.1 mg/dLCALCIUM 10.1 8.6 - 10.6 mg/Jareth PROTEIN 8.4 (*) 6.3 - 8.2 g/dLALBUMIN 4.4 3.5 - 5.0 g/dLALK PHOS 77 34 - 122 U/LALTv 46 (*) 5 - 35 U/LAST(SGOT) 31 13 - 40 U/LeGFR 101.8 mL/min/1.83g1KLZ WITH DIFF - AbnormalWBC 10.32 4.30 - 11.10 10*3/?LRBC 4.33 3.93 - 5.25 10*6/?LHGB 13.0 11.6 - 15.0 g/dLHCT 39.2 35.7 - 45.2 %MCV 90.5 80.6 - 95.5 fLMCH 30.0 25.9 - 32.8 pgMCHC 33.2 31.6 - 35.1 g/dLRDW-SD 41.5 39.0 - 49.9 fLRDW-CV 12.6 12.0 - 15.5 %PLT 352 166 - 358 10*3/?LMPV 11.6 9.5 - 12.9 fLNRBC/100 WBC 0.0 0.0 - 10.0 /100 WBCsNRBC x10^3 <0.01 10*3/?LGRAN MAT (NEUT) % 57.5 %IMM GRAN % 0.20 %LYMPH % 33.0 %MONO % 7.2 %EOS % 1.6 %BASO % 0.5 %GRAN MAT x10^3(ANC) 5.93 1.88 - 7.09 10*3/uLIMM GRAN x10^3 <0.03 0.00 - 0.06 10*3/uLLYMPH x10^3 3.41 (*) 1.32 - 3.29 10*3/uLMONO x10^3 0.74 0.33 - 0.92 10*3/uLEOS x10^3 0.17 0.03 - 0.39 10*3/uLBASO x10^3 0.05 0.01 - 0.07 10*3/uLTROPONIN I - NormalTROPONIN I 0.009 <=0.034 ng/mLD-DIMER - NormalD-DIMER 0.38 <0.41 ?g/mL (FEU)N-TERMINAL PRO-BNP - NormalNT-proBNP 47 <=125 pg/mLPOCT TEST - NormalPOCT PREG NegativeOn board controls acceptable with C Line YesPOCT PREG LOT # [id number] PREG TEST DATE 2325-80-85MRZ:If EKG completed, see Procedure Note.Orders and Treatments:Orders Placed This EncounterProceduresXR CHEST 1 VWTROPONIN ID-DIMERCOMP. METABOLIC PANEL (68664)CBC WITH DIFFN-TERMINAL PRO-BNPPOCT TESTNo orders of the defined types were placed in this encounter.First Provider Eval:ED EventsDate/Time Event User Sgfeccfl25/21/231947 Medical Screening Begins ROEL NIX MD --03/17/231947 First Provider Evaluation ROEL NIX MD R --ED COURSEED Course as of 03/17/23Mar [id number] Re-examined, symptom free, HR is 67, work up thus far quite reassuring. D dimer is negative. CXR negative for acute process. Troponin negative. Teaching done on return precautions, all questions answered. [RM]1954 MDM: Differential includes PE, ACS, less likely aortic process. Anxiety is a possibility given recent stressors. EKG with non specific changes including T wave flattening inferior with Q wave isolated to lead III. She is on estrogen containing control and there is FHx of VTE, so will obtain D dimer for first screening test. Lungs clear, no murmur, no signs of heart failure or anemia on exam. [RM]ED Course User Index[RM] Roel Nix, MDDiagnosis/Impression as of 03/17/23hest pain, unspecified typeProcedures:EKG-12 Lead ROUTINE ONCEDate/Time: 03/17/2023 7:47 PMPerformed by: Roel Nix MDAuthorized by: Roel Nix MDECG interpreted by ED Physician in the absence of a neuro psych sales specialist: noPrevious ECG:Previous ECG: Compared to currentSimilarity: Changes notedComparison ECG info: T waves more flattened inferior leads (previously inverted)Interpretation:Interpretation: non-specificDetails: Q wave in lead III, T wave flattening inferior.Rate:ECG rate: 94ECG rate assessment: normalRhythm:Rhythm: sinus rhythmEctopy:Ectopy: noneQRS:QRS axis: NormalQRS intervals: NormalQRS conduction: normalST segments:ST segments: NormalT waves:T waves: flatteningDetails: InferiorQ waves:Details: Q wave isolated to Lead IIIMDM:Medical Decision MakingPlease see ED Course for MDMAmount and/or Complexity of Data ReviewedExternal Data Reviewed: ECG and notes.Labs: ordered.Radiology: ordered.ECG/medicine tests: ordered and independent interpretation performed.Flowsheet Documentation:Scoring Tools:No data recordedDisposition/Condition:ED DispositionED DispositionDisch - HomeConditionStableComment--Discharge Medications:Patient's MedicationsSTART taking these medicationsNo medications on fileCONTINUE taking these medications which have NOT CHANGEDBENZONATATE 100 MG CAPSULE Take 1 capsule by mouth every 8 (eight) hours as needed for Cough.CLINDAMYCIN 1 % GEL APPLY THIN LAYER TO AFFECTED AREA IN GROIN/UNDERARMS/BREASTS EVERY DAYDESVENLAFAXINE SUCCINATE 50 MG 24 HR TABLETDIPHENHYDRAMINE HCL (BENADRYL ALLERGY ORAL) Take by mouth.DOXYCYCLINE HYCLATE 100 MG CAPSULE TAKE 1 CAPSULE BY MOUTH TWICE A DAY WITH FOOD AND WATER. DO NOT LIE DOWN ONE HOUR AFTER TAKINGIRBESARTAN 150 MG TABLET Take 1 tablet by mouth in the morning.NORGESTIMATE-ETHINYL ESTRADIOL 0.25-35 MG-MCG PER TABLET Take 1 tablet by mouth daily.START taking Modified Medications as PrescribedNo medications on fileSTOP taking these medicationsNo medications on fileFollow-up:Contact information for follow-upSofia Melara NPSpecialty: HEAD ROSE GROWER-NURSE PRACTITIONERRelationship: PCP - Gpsnglp[address] [place] [address] 15385Vllnq: [phone]: If symptoms worsenElectronically signed by:Roel Nix MD03/17/232124 26428-7Uqnrhpsvi Emergency department HlgcPK0714-52-14U90:25:49Physician Emergency department NoteTXT1.2.840.286895.1.13.104.2.7.2.05122 9|[id number] for patient ator52837-5Vkrysiqun department NoteLNNARRATIVEFormatted C-CDA narrative textUT[address] Ms[id number] KWEDNBPLYFPGCOOT6661-95-47E52:25:491.2.840 .899701.1.72.3.15|1.2.840.017062.1.13.104. 2.7.2.727879_[id number] [facility] 2023-03-17 15:42:14 P4uba3JnAnpf2pLaF7w3ZyG1Dxj/RRqf5qoCwNZM zd 907imUHB1P0y404d4Ig+gF4796-84-52S68:42:14F ormatting of this note might be different from the original.Tristan Barragan is a 32 year old femalePt. Is calling needing to speak to nurse.Pt states that Dr. Hollis advised her at office visit to increase rx propanolol to 20mg and is wondering if new medication is going to be sent in or if she should take two tablets.Pt would like to confirm since she does not want to run out of medication, please advise thank you 29099-2Zqywomqqi encounter YvbtWA6362-69-56U89:45:00Telephone encounter NoteTXT1.2.840.343504.1.13.104.2.7.2.71699 9|[id number] for patient apph80071-2YkqpAADVIGRHJXHMpxkqfpqi C-CDA narrative uimh578428467Bbxbhek Tsuruta Moreno [address] Ep[id number] VDAJMXLCVCGEICCZ3531-29-29C77:45:001.2.840 .373143.1.72.3.15|1.2.840.397121.1.13.104. 2.7.2.727879_[id number] Ligia Ch V [facility] 2023-03-16 14:20:00 h15as4N0u6IUNBI779CkXH1g0dFzVfy9yWkmA2Dn Mn hXXuT1TgQm/aOc3WL2D75P5376-00-41O97:20:00A ddended by: KIRA HOLLIS MD on: 04/19/2023 09:36 PMModules accepted: Orders 23074-5Jlmwivqd DxydlpkfVE2302-77-43Q97:36:38Addendum DocumentTXT1.2.840.701766.1.13.104.2.7.2.7 64358|[id number] for patient imye54087-3FltoZGEQKQTWKROZtbhctrhv C-CDA narrative text[address] Lg[id number] HZSPBQTCHPTETUWD4995-13-92V95:36:381.2.840 .115307.1.72.3.15|1.2.840.724094.1.13.104. 2.7.2.727879_[id number] [facility]
[2023-06-23 23:11] LABS: Absolute Basophils 0.1 K/uL (0-0.5); Absolute Eosinophils 0.1 K/uL (0-0.5); Absolute Lymphocytes (CBC) 2.5 K/uL (0.7-4.9); Absolute Monocytes 0.8 K/uL (0.1-1.3); Absolute Neutrophil 6.6 K/uL (1.8-8.0); Basophils % 0.6 % (0-1.3); Eosinophils % 0.9 % (0-4.4); Hematocrit 36.9 % (36.0-45.0); Hemoglobin 12.2 g/dL (12.0-15.0); Lymphocytes % 24.8 % (15.3-44.8); MCH 29.5 pg (27.0-35.0); MCV 89.4 fL (80-100); MPV 9.4 fL (7.6-11.3); Monocytes % 8.1 % (3.3-12.3); Neutrophils % 65.6 % (41.7-73.7); Platelets 355 thou/uL (152-406); RBC Red Blood Cell Count 4.13 M/uL (3.86-4.86); Red Cell Distribution Width 12.9 % (12.1-15.2)
[2023-06-23 23:14] LABS: PT Prothrombin Time 11.8 SECONDS (9.5-12.5); Protime INR 1.07
[2023-06-23 23:24] LABS: ALT/SGPT 21 U/L (13-56); AST/SGOT 11 U/L (15-37); Albumin 3.3 g/dL (3.4-5.0); Albumin/Globulin Ratio 0.7 (1.1-1.8); Alkaline Phosphatase 85 U/L (45-117); Anion Gap 7.7 mEq/L (5.0-15.0); BUN Blood Urea Nitrogen 9 mg/dL (7-18); Bicarbonate 28 mEq/L (21-32); Bilirubin Total 0.2 mg/dL (0.2-1.0); Globulin 4.8 g/dL (2.3-3.5); Glomerular Filtration Rate 106 ml/min (=/>90); Glucose Level 97 mg/dL (74-106); Magnesium 1.9 mg/dL (1.6-2.4); Potassium 3.7 mEq/L (3.5-5.1); Protein, Total 8.1 g/dL (6.4-8.2); Sodium Level 137 mEq/L (136-145)
[2023-06-23 23:27] LABS: Bilirubin Direct < 0.1 mg/dL (0-0.2); Bilirubin Indirect, Calculated ND mg/dL (0.2-0.8); Troponin High Sensitivity < 3.0 pg/mL (<58.9)
[2023-06-24] MEDS ORDERED: ONDANSETRON 4 MG/2 ML VIAL ONE (01:01)
--- NOTE | 2023-06-24 01:17 | ER ---
Nurse's Notes [facility] Name: Adamaris Whitlock Age: 32 yrs Sex: Female : 1990 Arrival Date: 06/23/2023 Time: 21:52 Bed 8 Private MD: Diagnosis: Dyspnea Presentation: 06/22 22:15 Chief complaint: Patient states: I have been having nausea, vomiting and SOB since ha1 Tuesday, and I am feeling like it is getting worse. 22:15 Coronavirus screen: Vaccine status: Patient reports receiving the 2nd dose of the covid ha1 vaccine. 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 Ebola Screen: No symptoms or risks identified at this time. Initial Sepsis Screen: Does the patient meet any 2 criteria? No. Patient's initial sepsis screen is negative. Does the patient have a suspected source of infection? No. Patient's initial sepsis screen is negative. Risk Assessment: Do you want to hurt yourself or someone else? Patient reports no desire to harm self or others. Onset of symptoms was June 22, 2023. 22:15 Method Of Arrival: Ambulatory ha1 22:15 Acuity: CHIP 3 ha1 Triage Assessment: 22:15 General: Appears comfortable, Behavior is cooperative, anxious. Pain: Complains of pain ha1 in chest Pain does not radiate. Pain currently is 2 out of 10 on a pain scale. Quality of pain is described as pressure, Pain began suddenly. Neuro: Level of Consciousness is awake, alert, obeys commands, Oriented to person, place, time, situation. Cardiovascular: Reports chest pain, shortness of breath, Heart tones S1 S2 present Capillary refill < 3 seconds Patient's skin is warm and dry. Respiratory: Reports shortness of breath at rest Airway is patent Respiratory effort is even, unlabored, Respiratory pattern is regular, symmetrical, Breath sounds are clear bilaterally. Onset: The symptoms/episode began/occurred yesterday, the patient has mild shortness of breath. GI: Abdomen is round non-distended, obese, Reports nausea, vomiting. Musculoskeletal: Circulation, motion, and sensation intact. Range of motion: intact in all extremities. Historical: - Allergies: 22:29 PENICILLINS; ha1 22:29 Sulfa (Sulfonamide Antibiotics); ha1 22:29 Lisinopril; ha1 22:29 BUSPIRONE; ha1 - Home Meds: 22:29 Propranolol Oral [Active]; ha1 - PMHx: 22:29 ADD/ADHD; Anxiety; Hypertension; ha1 - Immunization history:: Adult Immunizations up to date. - Social history:: Smoking status: Reported history of juuling and/or vaping. Patient/guardian denies using tobacco, the patient reports quitting approximately 3 years ago. Screenin:34 Abuse screen: Denies threats or abuse. Denies injuries from another. Nutritional ha screening: No deficits noted. Tuberculosis screening: No symptoms or risk factors identified. 06/23 00:11 [facility] ED Fall Risk Assessment (Adult) History of falling in the last 3 months, rv including since admission No falls in past 3 months (0 pts) Score/Fall Risk Level 0 - 2 = Low Risk Oriented to surroundings, Maintained a safe environment, Educated pt \T\ family on fall prevention, incl call for assistance when getting out of bed, Assessed \T\ reinforced patient's understanding of fall precautions. Assessment: 06/22 22:15 Reassessment: see triage assessment. ha1 06/23 00:11 Cardiovascular: Rhythm is regular. rv Vital Signs: 06/22 22:15 BP 151 / 87; Pulse 77; Resp 18 S; Temp 98.5(O); Pulse Ox 99% on R/A; Weight 105.69 kg; ha1 Height 5 ft. 11 in. ; 06/23 00:10 BP 146 / 85; Pulse 79; Resp 18; Pulse Ox 100% on R/A; rv 06/22 22:15 Body Mass Index 32.50 (105.69 kg, 180.34 cm) [facility] ED Course: 06/22 21:53 Patient arrived in ED. jj6 22:15 Jessica Judd PA-C is PHCP. sb4 22:15 Ronni Medina MD is Attending Physician. sb4 22:29 Triage completed. ha1 22:51 XRAY Chest (1 view) In Process Unspecified. EDMS 22:57 Basic Metabolic Panel Sent. ha1 22:57 CBC with Diff Sent. ha1 22:57 D-Dimer Sent. ha1 22:57 LFT's Sent. ha1 22:57 Magnesium Sent. ha1 22:57 PT-INR Sent. ha1 22:57 Troponin HS Sent. ha1 22:58 Inserted saline lock: 20 gauge in right antecubital area, using aseptic technique. ha1 Blood collected. 06/23 00:10 Arm band placed on right wrist. rv 00:11 No provider procedures requiring assistance completed. rv 00:11 Patient has correct armband on for positive identification. Placed in gown. Bed in low rv position. Client placed on continuous cardiac and pulse oximetry monitoring. NIBP monitoring applied. site monitor on. 00:18 Chest For PE Angio CT In Process Unspecified. EDMS 01:24 Ward Luo, RN is Primary Nurse. rv 01:25 IV discontinued, intact, bleeding controlled, No redness/swelling at site. Pressure rv dressing applied. Administered Medications: 01:03 Drug: Ondansetron IVP 4 mg IVP once; over 2 minutes Route: IVP; Site: right antecubital;yb 01:25 Follow up: Response: No adverse reaction rv Medication: 00:11 VIS not applicable for this client. rv Outcome: 01:16 Discharge ordered by . jovani 01:24 Discharged to home ambulatory, rv 01:24 Condition: good 01:24 Discharge instructions given to patient, Instructed on discharge instructions, follow up and referral plans. medication usage, Demonstrated understanding of instructions, follow-up care, medications, Prescriptions given X 2, 01:25 Patient left the ED. rv Signatures: Dispatcher [employer] EDTX Ward Luo, RN RN rv Argentina Chapman jj6 Tracy Edmonds RN Jessica Moffett, PA-C PA-C Audrey Stokes RN RN yb
--- NOTE | 2023-06-24 01:17 | EDPHYS ---
Physician Documentation [facility] Name: Adamaris Whitlcok Age: 32 yrs Sex: Female : 1990 Arrival Date: 06/23/2023 Time: 21:52 Bed 8 Private MD: ED Physician Ronni Medina HPI: 06/22 22:40 This 32 yrs old Female presents to ER via Ambulatory with complaints of Shortness Of sb4 Breath. 22:41 Patient states that she has been experiencing chest pain, difficulty taking a deep sb4 breath, nausea, vomiting, dizziness for 2 days now. She states that she has had episodes like this in the past with negative workups. She saw her PCP yesterday who referred her to cardiology who she saw today. Cardiology did an echo and said it was normal but did order a CT angiogram outpatient. She states that she just feels like something is wrong and wanted to be evaluated now. Historical: - Allergies: 22:29 PENICILLINS; ha1 22:29 Sulfa (Sulfonamide Antibiotics); ha1 22:29 Lisinopril; ha1 22:29 BUSPIRONE; ha1 - Home Meds: 22:29 Propranolol Oral [Active]; ha1 - PMHx: 22:29 ADD/ADHD; Anxiety; Hypertension; ha1 - Immunization history:: Adult Immunizations up to date. - Social history:: Smoking status: Reported history of juuling and/or vaping. Patient/guardian denies using tobacco, the patient reports quitting approximately 3 years ago. ROS: 22:41 Constitutional: Negative for fever, chills, and weight loss, sb4 22:41 Cardiovascular: Positive for chest pain, 22:41 Respiratory: Positive for shortness of breath, 22:41 Neuro: Positive for dizziness, headache, 22:41 All other systems are negative, Exam: 22:41 Head/Face: Normocephalic, atraumatic. Eyes: Extra-ocular motions intact. Periorbital sb4 areas with no swelling, redness, or edema. ENT: Mucous membranes moist. Cardiovascular: Regular rate and rhythm with a normal S1 and S2. Respiratory: Lungs have equal breath sounds bilaterally, clear to auscultation and percussion. No rales, rhonchi or wheezes noted. No increased work of breathing, no retractions or nasal flaring. Abdomen/GI: Soft, non-tender, no distension. Skin: Warm, dry with normal turgor. Normal color with no rashes, no lesions, and no evidence of cellulitis. MS/ Extremity: Pulses equal, no cyanosis. Neurovascular intact. Full, normal range of motion. Neuro: Awake and alert, GCS 15, oriented to person, place, time, and situation. Motor strength 5/5 in all extremities. Sensory grossly intact. 22:41 Constitutional: The patient appears alert, awake, obese, Tearful Vital Signs: 22:15 BP 151 / 87; Pulse 77; Resp 18 S; Temp 98.5(O); Pulse Ox 99% on R/A; Weight 105.69 kg; ha1 Height 5 ft. 11 in. ; 06/23 00:10 BP 146 / 85; Pulse 79; Resp 18; Pulse Ox 100% on R/A; rv 06/22 22:15 Body Mass Index 32.50 (105.69 kg, 180.34 cm) ha1 MDM: 06/22 22:15 Patient medically screened. sb4 06/23 01:13 Data reviewed: vital signs, nurses notes, lab test result(s), EKG, radiologic studies, sb4 and as a result, I will discharge patient. Counseling: I had a detailed discussion with the patient and/or guardian regarding the historical points, exam findings, and any diagnostic results supporting the discharge/admit diagnosis, lab results, radiology results, to return to the emergency department if symptoms worsen or persist or if there are any questions or concerns that arise at home. 06/22 22:37 Order name: Basic Metabolic Panel; Complete Time: 23:27 sb4 06/22 22:37 Order name: CBC with Diff; Complete Time: 23:13 sb4 06/22 22:37 Order name: D-Dimer; Complete Time: 23:16 sb4 06/22 22:37 Order name: LFT's; Complete Time: 23:27 sb4 06/22 22:37 Order name: Magnesium; Complete Time: 23:27 sb4 06/22 22:37 Order name: PT-INR; Complete Time: 23:16 sb4 06/22 22:37 Order name: Troponin HS; Complete Time: 23:27 sb4 06/22 22:37 Order name: XRAY Chest (1 view) sb4 06/22 22:37 Order name: Chest For PE Angio CT sb4 06/22 22:37 Order name: EKG; Complete Time: 22:37 sb4 06/22 22:37 Order name: Cardiac monitoring; Complete Time: 22:48 sb4 06/22 22:37 Order name: EKG - Nurse/Tech; Complete Time: 22:48 sb4 06/22 22:37 Order name: IV Saline Lock; Complete Time: 22:48 sb4 06/22 22:37 Order name: Labs collected and sent; Complete Time: 22:57 sb4 06/22 22:37 Order name: O2 Per Protocol; Complete Time: 22:57 sb4 06/22 22:37 Order name: O2 Sat Monitoring; Complete Time: :57 sb4 EC/28 23:14 Rate is 74 beats/min. Rhythm is regular, Normal Sinus Rhythm. WA interval is normal at sb4 132 msec. QRS interval is normal at 88 msec. QT interval is normal at 392 msec. No Q waves. T waves are Normal. No ST changes noted. Clinical impression: Normal ECG and No evidence of ischemia. Interpreted by me. Reviewed by me. Administered Medications: 06/23 01:03 Drug: Ondansetron IVP 4 mg IVP once; over 2 minutes Route: IVP; Site: right antecubital; 01:25 Follow up: Response: No adverse reaction rv Disposition: 07:25 Co-signature as Attending Physician, Ronni Medina MD I agree with the assessment sp4 and plan of care. I reviewed the patient's care provided by the Advanced Practice Provider and agree with the diagnosis and treatment plan. Disposition Summary: 06/24/23 01:16 Discharge Ordered Notes: Location: Home sb4 Problem: an ongoing problem sb4 Symptoms: have improved sb4 Condition: Stable sb4 Diagnosis - Dyspnea sb4 Followup: sb4 - With: Emergency Department - When: As needed - Reason: Trouble breathing, Worsening of condition Discharge Instructions: - Discharge Summary Sheet sb4 - Shortness of Breath, Adult, [id number] sb4 Forms: - Thank You Letter sb4 - Patient Portal Instructions sb4 - Leadership Thank You Letter sb4 Prescriptions: - albuterol sulfate 90 mcg/actuation Inhalation HFA Aerosol Inhaler - inhale 2 inhalation INHALATION route every 6 hours as needed for shortness of sb4 breath or wheezing; 1 Applicator; Refills: 0, Product Selection Permitted - ondansetron 8 mg Oral Tablet,disintegrating - take 1 tablet ORAL route every 12 hours; 20 tablet; Refills: 0, Product sb4 Selection Permitted Signatures: Dispatcher [employer] Tracy Fleming RN RN ha1 Jessica Judd, KARIE TIWARI sb4 Ronni Medina MD MD sp4 Audrey Judd RN RN yb Ward Luo RN rv
[2023-06-24 01:41] VITALS: BP 146/85; TEMP 98.5; O2SAT 100
--- NOTE | 2023-06-24 11:51 | EKG ---
Test Date: 2023-06-23 Test Time: 21:43:19 Help Desk Representative: DENNSI MEASUREMENT RESULTS: Intervals: Rate: 74 ME: 132 QRSD: 88 QT: 392 QTc: 435 [place]: P: 33 ME: 132 QRS: 15 T: 29 INTERPRETIVE STATEMENTS: Normal sinus rhythm Normal ECG Compared to ECG 03/24/2018 07:52:03 Sinus tachycardia no longer present Electronically Signed On 06-24-23 11:48:53 CDT by Willy Platt
--- NOTE | 2023-06-24 16:23 | RAD REPORT ---
EXAM DESCRIPTION: Chest For Pe Angio CLINICAL HISTORY: CHEST PAIN COMPARISON: None Available. TECHNIQUE: CTA of the chest obtained following the administration of IV contrast. 3-D/MIP reformatte d images of the chest available for evaluation. This exam was performed according to our departmental dose-optimization program, which includes automated exposure control, adjustment of the mA and/or kV according to patient size and/or use of iterative reconstruction technique. FINDINGS: Chest: Pulmonary arteries: Contrast bolus is adequate. There is some streak artifact from dense contrast in the SVC which partially obscures the right main pulmonary artery. No visualized pulmonary embolism. Thyroid gland: No abnormalities of the visualized thyroid gland. Great Vessels: Great vessels have normal anatomic configuration. Thoracic Aorta: No aneurysm. No visualized dissection. Heart: No pericardial effusion. No significant coronary artery calcifications. Lymph Nodes: No enlarged mediastinal, hilar, or axillary lymph nodes identified. Esophagus: No abnormalities of the esophagus identified. Other: No additional findings. Lungs: Posterior basilar lower lobes are not fully included. No suspicious parenchymal opacities iden tified. Pleura: No pleural effusion or pneumothorax. Trachea/Airways: Central airways are patent. Bones: No destructive osseous lesions. Upper Abdomen: Limited images of the upper abdomen demonstrate no acute abnormality. IMPRESSION: 1. No visualized pulmonary embolism. 2. No acute abnormality on CT of the chest. Electronically signed by: Leatha Serrano MD 06/24/2023 12:46 AM CDT Due to temporary technical issues with the PACS/Fluency reporting system, reports are being signed by the in house radiologists without review as a courtesy to insure prompt reporting. The interpreting radiologist is fully responsible for the content of the report.
--- NOTE | 2023-06-24 16:27 | RAD REPORT ---
EXAM DESCRIPTION: R CHEST 1 VIEW CLINICAL HISTORY: Chest pain;Dyspnea TECHNIQUE: Single view chest COMPARISON: None FINDINGS: The heart appears unremarkable. The lungs are clear there is no alveolar consolidation, ef fusion or pneumothorax. There are no acute bony or soft tissue abnormalities. IMPRESSION: No acute cardiopulmonary process. Electronically signed by: Cliff Martin MD 06/23/2023 11:00 PM CDT Due to temporary technical issues with the PACS/Fluency reporting system, reports are being signed by the in house radiologists without review as a courtesy to insure prompt reporting. The interpreting radiologist is fully responsible for the content of the report.
== END 2023-06-24 01:25 | disposition home or self-care (01) ==
LOC: ER 21:52
DX: R06.00 Dyspnea, unspecified (principal); R07.9 Chest pain, unspecified; I10 Essential (primary) hypertension; F41.9 Anxiety disorder, unspecified; Z88.0 Allergy status to penicillin; Z88.2 Allergy status to sulfonamides; Z88.8 Allergy status to other drugs, medicaments and biological substances
CPT/HCPCS: 93005; 85025; 80048; 36415; 83735; 85610; 85379; 80076; 84484; 71275; 71045; 96374; 99285; Q9967; J2405